=== PATIENT | female | born 1965 | race Caucasian/White ===

== ENCOUNTER → 2018-09-24 11:30 | Outpatient (CLI) | payer OTHER, SELFPAY ==
[2018-09-24 11:24] VITALS: BMI 22.4
[2018-09-30 10:36] LABS: HPV APTIMA, High Risk Negative (Negative)
--- OUTSIDE RECORDS SUMMARY | 2018-11-10 22:05 | XMS RPT_ITS ---
:1965 Author Organization OHIP Care Team Providers Name Role Phone ILEANA BRANDON ([facility]) Attending Unavailable TALAMPAS, RIGO D Referring Unavailable CARRILLO, JENNIFER B Attending Unavailable TALAMPAS, RIGO D Referring Unavailable OLDER, YVES ([facility]) Attending Unavailable CARRILLO, JENNIFER B Referring Unavailable CARRILLO, JENNIFER B Referring Unavailable FRANCISCO, BENNY T Admitting Unavailable FRANCISCO, BENNY T Attending Unavailable OLDER, YVES ([facility]) Referring Unavailable BRINATATUM KEITH ([facility]) Attending Unavailable CARRILLO, JENNIFER B Referring Unavailable [facility] Attending Unavailable Talampas, Rigo Referring Unavailable Jerry, [place]ena Attending Unavailable [facility] Referring Unavailable PROBLEMS PROBLEMS DATE TYPE CONDITION / CODE ATTENDING STATUS SOURCE 09/26/2018 Active Encounter for FRANCISCO, Active [facility] screening for EBNNY T [facility] malignant neoplasm Repository of colon / Z12.11(ICD-10) 09/24/2018 Unknown Z12.4 - Encounter [place] Edwards Active [place] for screening for Community malignant neoplasm Hospital of cervix / Repository Z12.4(ICD-10) 09/24/2018 Unknown Z01.419 - Encounter [place] Edwards Active [place] for gynecological [facility] examination [facility] (general) (routine) Repository without abnormal findings / Z01.419(ICD-10) 09/24/2018 Unknown C50.911 - Malignant [facility] [place] neoplasm of Community unspecified site of Hospital right female breast Repository / C50.911(ICD-10) 09/24/2018 Unknown Z17.0 - Estrogen JerryLa Nena pérez Active [place] receptor positive Community status [ER+] / Hospital Z17.0(ICD-10) Repository 09/24/2018 Active Malignant neoplasm NA Active [facility] of upper-outer [place] quadrant of right Repository female breast / C50.411(ICD-10) 09/24/2018 Active Estrogen receptor NA Active [facility] positive status [place] (ER+) / Repository Z17.0(ICD-10) 07/16/2018 Active Unknown / OLDER, YVES Active [facility] UNK(Unknown) ([facility]) [place] Repository PROCEDURES PROCEDURES No Procedure Records FoundRESULTS RESULTS PROGRESS Observed: 10/28/2018 Status: COMPLETED Source: [place] 9:58 AM [facility] [place] REPOSITORY HNO ID: [id number] Author: Tatum Ashford ([facility]) [place] Service: (none) Author Type: Nurse Practitioner Type: Progress Notes Filed: 10/28/2018 3:00 PM Note Text: HISTORY OF PRESENT ILLNESS: Per Dr. Carrillo's office visit notes 03/28/18: Ms. Irving 53-year-old white female who was found to have T1c N0 (i-) M0, grade 1, right breast cancer, stage IA, ER/WA positive, Her 2neu non-amplified. This was in the tail of the breast. She now returns after undergoing Oncotype DX shows score of 11. She has completed XRT and was started on Tamoxifen 03/2012. CURRENT STATUS: She presents today for 6 month follow-up visit. She continues taking tamoxifen 20 mg daily and has been on this since March,. Her recent mammogram on 09/24/18 was determined BI- RADS Category 2 benign after extra films were obtained. Her last bone density test was on 03/12/17 as reported as normal bone density. She continues taking her vitamin D supplements daily and jogs 2-3 miles 2-3 times per week. She denies any muscle cramping, vaginal bleeding or signs of extremity swelling. She has a rare hot flash. She had a repeat colonoscopy on 09/26/[address] Murphy with normal findings and recommendations to repeat in 10 years. Her last menstrual period was in 2013. ROS: CONSTITUTIONAL: No fever, chills, night sweats or excessive fatigue. EYES: No significant visual difficulties. No diplopia. No blurred vision HEENT: No sore mouth or throat. No sinus drainage. ENDOCRINE: Rare hot flashes/night sweats. Denies excessive thirst. HEMATOLOGY/LYMPHOLOGY: No easy bruising or bleeding, The patient denies any tender or palpable lymph nodes. RESPIRATORY: No dyspnea on exertion, chest pain or hemoptysis. CARDIOVASCULAR: Denies palpitations orthopnea. GENITOURINARY: She denies any dysuria or vaginal bleeding. GASTROINTESTINAL: Denies GI bleeding or change in bowel habits. Denies heartburn or abdominal pain. MUSCULOSKELETAL: No joint pain, swelling or redness. No decreased range of motion. SKIN: No chronic rashes, inflammation, ulcerations or skin changes. NEURO: No headaches. Denies extremity weakness or numbness. Normal gait. All other reviewed and negative other than HPI. ECOG PERFORMANCE STATUS: 0- Fully active, able to carry on all pre-disease performance w/o restriction. Social History Marital status: Spouse name: Price Years of education: 18 Number of children: 2 Occupational History Occupation Employer [employer] Social History Main Topics Smoking status: Never Smoker Smokeless tobacco: Never Used Alcohol use: No Drug use: No Sexual activity: Yes Partners with: Male control/protection: Vasectomy Other Topics Concern Special Diet No Exercise Yes Comment:Walk and run x3 per week. Social History Narrative Lives with spouse, significant other, family, or friends. 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, [employer] --- Updated July 15, 2017 [facility] FAMILY HISTORY Problem Relation Age of Onset - Hypertension Mother - Lipids Father - Osteoporosis Father - Stroke Father - Breast Cancer Other no family history breast ca - Cancer Other no family history ovarian cancer PAST MEDICAL HISTORY Diagnosis Date - Anemia, unspecified 05/2013 - Breast cancer (HCC) 12/10/2011 Right, ER/WA+, Her 2neu 0-1+ Not amplified - Mixed hyperlipidemia Hyperlipidemia - Shoulder pain 01/24/2010 PHYSICAL EXAM: BP 114/62 Pulse 72 Temp (Src) 97.9 (Oral) Resp 16 Ht 5' 4.961 (1.65m) Wt 136 lb (61.7kg) SpO2 95% LMP 06/22/2014 BMI 22.66 kg/(m2). CONSTITUTIONAL: Awake, alert, oriented. HEAD (Incl. face): Normocephalic; Atraumatic. EYES: Pupils are reactive. No scleral icterus. HEENT: No oral exudates. NECK: No thyromegaly. No JVD. HEMATOLOGY/LYMPHATIC: No petechiae or purpura. No tender or palpable lymph nodes in the cervical, supraclavicular, axillary or inguinal areas. RESPIRATORY: Lungs are clear to auscultation. CARDIOVASCULAR: Regular rate and rhythm. 2 + radial pulse. ABDOMEN: Non-tender, soft, positive bowel sounds. BACK/SPINE: No kyphosis or scoliosis. Non tender to palpation. MUSCULOSKELETAL: No tenderness or swelling, normal range of motion without obvious weakness. EXTREMITIES: No cyanosis, clubbing INTEGUMENTARY: No rashes or masses. NEURO: No sensory or motor deficits, normal cerebellar function, normal gait. PSYCHIATRIC: Pleasant affect. No signs of agitation. BREAST: Bilateral breast without masses, nipple d/c or skin discoloration. Evidence of right breast lumpectomy. LABS: Component Latest Ref Rng AND Units 03/27/2018 09/24/2018 WBC 3.70 - 11.00 k/uL 8.21 6.65 RBC 3.90 - 5.20 m/uL 4.59 4.45 Hemoglobin 11.5 - 15.5 g/dL 13.0 12.7 Hematocrit 36.0 - 46.0 % 39.9 39.7 MCV 80.0 - 100.0 fL 86.9 89.2 MCH 26.0 - 34.0 pG 28.3 28.5 MCHC 30.5 - 36.0 g/dL 32.6 32.0 RDW-CV 11.5 - 15.0 % 12.8 12.4 Platelet Count 150 - 400 k/uL 308 325 MPV 9.0 - 12.7 fL 10.0 11.2 Neut% % 69.1 63.1 Abs Neut (ANC) 1.45 - 7.50 k/uL 5.67 4.18 Lymph% % 23.6 28.9 Abs Lymph 1.00 - 4.00 k/uL 1.94 1.92 Routt% % 5.6 6.8 Abs Routt <0.87 k/uL 0.46 0.45 Eosin% % 1.5 0.6 Abs Eosin <0.46 k/uL 0.12 0.04 Baso% % 0.2 0.6 Abs Baso <0.11 k/uL <0.03 0.04 Nucleated Reds 0 /100 WBC 0.0 Absolute nRBC <0.01 k/uL <0.01 Diff Type Auto Diff Protein, Total 6.3 - 8.0 g/dL 7.8 7.4 Albumin 3.9 - 4.9 g/dL 4.8 4.6 Calcium 8.5 - 10.2 mg/dL 9.4 9.4 Bilirubin, Total 0.2 - 1.3 mg/dL <0.2 (L) 0.2 Alkaline Phosphatase 34 - 123 U/L 62 61 AST 13 - 35 U/L 32 29 Glucose 74 - 99 mg/dL 99 70 (L) BUN 7 - 21 mg/dL 15 15 Creatinine 0.58 - 0.96 mg/dL 0.66 0.70 Sodium 136 - 144 mmol/L 141 140 Potassium 3.7 - 5.1 mmol/L 4.2 4.2 Chloride 97 - 105 mmol/L 101 101 CO2 22 - 30 mmol/L 27 25 Anion Gap 9 - 18 mmol/L 13 14 ALT 7 - 38 U/L 24 17 eGFR- >60 >60 eGFR-All Other Races . >60 >60 RADIOLOGY: Mammogram 09/24/18 bilateral breasts IMPRESSION: No mammographic evidence of malignancy. Routine annual screening mammography is recommended. ? Amended BI-RADS: 2 Benign finding letter sent: Normal over 40 Bone density 03/12/2017 03/12/2017 12:04 PM - Interface, Results In Impression IMPRESSION: The patient's T- scores meet the World Health Organization classification for normal bone density. Follow-up exam in 2 to 4 years recommended WORLD HEALTH ORG. CLASSIFICATION OF BONE MASS CLASSIFICATION ?T-SCORE Normal ?Greater than or equal to -1 Low Bone Mass ?Between -1 and -2.5 (Osteopenia) Osteoporosis ?Less than or equal to -2.5 Manager [employer]: JENIFER ? Transcribe Date/Time: Mar 12 2017 11:55A Dictated by : JEFFREY DOBSON DO ASSESSMENT / PLAN: 1. Right Breast carcinoma. The pt was found to have low risk disease, T1c N0 M0 (i-), ER/WA positive and Her 2neu negative. She wants to continue on the Tamoxifen to complete the [address] Carrillo previously discussed options of 5 more years tamoxifen or switching to an AI. She will continue on the tamoxifen for now. I will refill this today. I did give her handouts on the 3 aromatase inhibitors from [employer]. Her most recent mammogram was 09/2018 and was BIRADS 2. I will plan to repeat in 09/2019. She will be due for a repeat bmd 02/2019. 2. Abn of Liver. Repeat CT in 03/2012 shows no abnormality. 3. Left Breast Biopsy. This was negative. 4. S/p endometrial biopsy. Her last menstrual period was in 2013. 5. General. She reports that she has maternal cousin that was dx with breast cancer. Her BRCA 1/2 testing and was negative. Tatum Gonsalves CNP CC: Dr. Rgio Boone CNOVSP Observed: 10/28/2018 Status: COMPLETED Source: [place] 9:30 AM [facility] REPOSITORY Visit (SP) Office ([place]) JOANN IRVING ([id number]) 1965 F Date Time Provider Department 10/28/18 9:30 AM TATUM GONSALVES ([facility]) [place] During your visit today, we recorded the following information about you: Temperature Pulse Respiration Blood pressure 97.9 degrees 72/minute 16/minute 114/62 Weight Height 61.7 kg 1.65 m Tatum Gonsalves APRN.CNP 10/28/2018 3:00 PM Signed HISTORY OF PRESENT ILLNESS: Per Dr. Carrillo's office visit notes 03/28/18: Ms. Irving 53-year-old white female who was found to have T1c N0 (i-) M0, grade 1, right breast cancer, stage IA, ER/WA positive, Her 2neu non-amplified. This was in the tail of the breast. She now returns after undergoing Oncotype DX shows score of 11. She has completed XRT and was started on Tamoxifen 03/2012. CURRENT STATUS: She presents today for 6 month follow-up visit. She continues taking tamoxifen 20 mg daily and has been on this since March,. Her recent mammogram on 09/24/18 was determined BI-RADS Category 2 benign after extra films were obtained. Her last bone density test was on 03/12/17 as reported as normal bone density. She continues taking her vitamin D supplements daily and jogs 2-3 miles 2-3 times per week. She denies any muscle cramping, vaginal bleeding or signs of extremity swelling. She has a rare hot flash. She had a repeat colonoscopy on 09/26/[address] Murphy with normal findings and recommendations to repeat in 10 years. Her last menstrual period was in 2013. ROS: CONSTITUTIONAL: No fever, chills, night sweats or excessive fatigue. EYES: No significant visual difficulties. No diplopia. No blurred vision HEENT: No sore mouth or throat. No sinus drainage. ENDOCRINE: Rare hot flashes/night sweats. Denies excessive thirst. HEMATOLOGY/LYMPHOLOGY: No easy bruising or bleeding, The patient denies any tender or palpable lymph nodes. RESPIRATORY: No dyspnea on exertion, chest pain or hemoptysis. CARDIOVASCULAR: Denies palpitations orthopnea. GENITOURINARY: She denies any dysuria or vaginal bleeding. GASTROINTESTINAL: Denies GI bleeding or change in bowel habits. Denies heartburn or abdominal pain. MUSCULOSKELETAL: No joint pain, swelling or redness. No decreased range of motion. SKIN: No chronic rashes, inflammation, ulcerations or skin changes. NEURO: No headaches. Denies extremity weakness or numbness. Normal gait. All other reviewed and negative other than HPI. ECOG PERFORMANCE STATUS: 0- Fully active, able to carry on all pre-disease performance w/o restriction. Social History Marital status: Spouse name: Price Years of education: 18 Number of children: 2 Occupational History Occupation Employer [employer] Social History Main Topics Smoking status: Never Smoker Smokeless tobacco: Never Used Alcohol use: No Drug use: No Sexual activity: Yes Partners with: Male control/protection: Vasectomy Other Topics Concern Special Diet No Exercise Yes Comment:Walk and run x3 per week. Social History Narrative Lives with spouse, significant other, family, or friends. 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, [employer] --- Updated July 15, 2017 [facility] at [facility] FAMILY HISTORY Problem Relation Age of Onset - Hypertension Mother - Lipids Father - Osteoporosis Father - Stroke Father - Breast Cancer Other no family history breast ca - Cancer Other no family history ovarian cancer PAST MEDICAL HISTORY Diagnosis Date - Anemia, unspecified 05/2013 - Breast cancer (HCC) 12/10/2011 Right, ER/WA+, Her 2neu 0-1+ Not amplified - Mixed hyperlipidemia Hyperlipidemia - Shoulder pain 01/24/2010 PHYSICAL EXAM: BP 114/62 Pulse 72 Temp (Src) 97.9 (Oral) Resp 16 Ht 5' 4.961 (1.65m) Wt 136 lb (61.7kg) SpO2 95% LMP 06/22/2014 BMI 22.66 kg/(m2). CONSTITUTIONAL: Awake, alert, oriented. HEAD (Incl. face): Normocephalic; Atraumatic. EYES: Pupils are reactive. No scleral icterus. HEENT: No oral exudates. NECK: No thyromegaly. No JVD. HEMATOLOGY/LYMPHATIC: No petechiae or purpura. No tender or palpable lymph nodes in the cervical, supraclavicular, axillary or inguinal areas. RESPIRATORY: Lungs are clear to auscultation. CARDIOVASCULAR: Regular rate and rhythm. 2 + radial pulse. ABDOMEN: Non-tender, soft, positive bowel sounds. BACK/SPINE: No kyphosis or scoliosis. Non tender to palpation. MUSCULOSKELETAL: No tenderness or swelling, normal range of motion without obvious weakness. EXTREMITIES: No cyanosis, clubbing INTEGUMENTARY: No rashes or masses. NEURO: No sensory or motor deficits, normal cerebellar function, normal gait. PSYCHIATRIC: Pleasant affect. No signs of agitation. BREAST: Bilateral breast without masses, nipple d/c or skin discoloration. Evidence of right breast lumpectomy. LABS: Component Latest Ref Rng AND Units 03/27/2018 09/24/2018 WBC 3.70 - 11.00 k/uL 8.21 6.65 RBC 3.90 - 5.20 m/uL 4.59 4.45 Hemoglobin 11.5 - 15.5 g/dL 13.0 12.7 Hematocrit 36.0 - 46.0 % 39.9 39.7 MCV 80.0 - 100.0 fL 86.9 89.2 MCH 26.0 - 34.0 pG 28.3 28.5 MCHC 30.5 - 36.0 g/dL 32.6 32.0 RDW-CV 11.5 - 15.0 % 12.8 12.4 Platelet Count 150 - 400 k/uL 308 325 MPV 9.0 - 12.7 fL 10.0 11.2 Neut% % 69.1 63.1 Abs Neut (ANC) 1.45 - 7.50 k/uL 5.67 4.18 Lymph% % 23.6 28.9 Abs Lymph 1.00 - 4.00 k/uL 1.94 1.92 Routt% % 5.6 6.8 Abs Routt <0.87 k/uL 0.46 0.45 Eosin% % 1.5 0.6 Abs Eosin <0.46 k/uL 0.12 0.04 Baso% % 0.2 0.6 Abs Baso <0.11 k/uL <0.03 0.04 Nucleated Reds 0 /100 WBC 0.0 Absolute nRBC <0.01 k/uL <0.01 Diff Type Auto Diff Protein, Total 6.3 - 8.0 g/dL 7.8 7.4 Albumin 3.9 - 4.9 g/dL 4.8 4.6 Calcium 8.5 - 10.2 mg/dL 9.4 9.4 Bilirubin, Total 0.2 - 1.3 mg/dL <0.2 (L) 0.2 Alkaline Phosphatase 34 - 123 U/L 62 61 AST 13 - 35 U/L 32 29 Glucose 74 - 99 mg/dL 99 70 (L) BUN 7 - 21 mg/dL 15 15 Creatinine 0.58 - 0.96 mg/dL 0.66 0.70 Sodium 136 - 144 mmol/L 141 140 Potassium 3.7 - 5.1 mmol/L 4.2 4.2 Chloride 97 - 105 mmol/L 101 101 CO2 22 - 30 mmol/L 27 25 Anion Gap 9 - 18 mmol/L 13 14 ALT 7 - 38 U/L 24 17 eGFR- >60 >60 eGFR-All Other Races . >60 >60 RADIOLOGY: Mammogram 09/24/18 bilateral breasts IMPRESSION: No mammographic evidence of malignancy. Routine annual screening mammography is recommended. ? Amended BI-RADS: 2 Benign finding letter sent: Normal over 40 Bone density 03/12/2017 03/12/2017 12:04 PM - Interface, Results In Impression IMPRESSION: The patient's T- scores meet the World Health Organization classification for normal bone density. Follow-up exam in 2 to 4 years recommended WORLD HEALTH ORG. CLASSIFICATION OF BONE MASS CLASSIFICATION ?T-SCORE Normal ?Greater than or equal to -1 Low Bone Mass ?Between -1 and -2.5 (Osteopenia) Osteoporosis ?Less than or equal to -2.5 Manager [employer]: JENIFER ? Transcribe Date/Time: Mar 12 2017 11:55A Dictated by : JEFFREY DOBSON DO ASSESSMENT / PLAN: 1. Right Breast carcinoma. The pt was found to have low risk disease, T1c N0 M0 (i-), ER/WA positive and Her 2neu negative. She wants to continue on the Tamoxifen to complete the [address] Carrillo previously discussed options of 5 more years tamoxifen or switching to an AI. She will continue on the tamoxifen for now. I will refill this today. I did give her handouts on the 3 aromatase inhibitors from [employer]. Her most recent mammogram was 09/2018 and was BIRADS 2. I will plan to repeat in 09/2019. She will be due for a repeat bmd 02/2019. 2. Abn of Liver. Repeat CT in 03/2012 shows no abnormality. 3. Left Breast Biopsy. This was negative. 4. S/p endometrial biopsy. Her last menstrual period was in 2013. 5. General. She reports that she has maternal cousin that was dx with breast cancer. Her BRCA 1/2 testing and was negative. Tatum Gonsalves, IVANA CC: Dr. Rigo Boone Referring Provider: JENNIFER CARRILLO [[id number]] Allergies As of Date: 10/28/2018 (No Known Allergies) Date Reviewed: 10/28/2018 Reviewed by: Lorraine Guevara MA - Fully Assessed Reason for Visit: F/U 6 Month [444] Primary Visit Diagnosis:Malignant neoplasm of upper-outer quadrant of right breast in female, estrogen receptor positive (HCC) [C50.411, Z17.0] Other Visit Diagnosis:Encounter for therapeutic drug level monitoring [Z51.81] Order(s):tamoxifen (NOLVADEX) 20 mg tabletTake 1 tablet by mouth once daily.Disp: 90 tabletRfl: 1 CBC + DIFF (FOR REMOTE [facility] USE) [SQRCBCDF] Order #: [id number] FUTURE COMP METABOLIC PANEL [SQCMP] Order #: [id number] FUTURE Follow-up and Disposition History Recorded Prescriptions as of 10/28/2018 Sig: TAMOXIFEN 20 MG TABLET Take 1 tablet by mouth once d* FLUTICASONE 50 MCG/ACTUATION * Use 2 Sprays in each nostril * CHOLECALCIFEROL (VITAMIN D3) * Take 2,000 Units by mouth onc* Problem List As Of Date 10/28/2018 Noted Resolved Hyperlipemia [E78.5] INVALID FOR* More... Breast cancer [C50.919] INVALID FOR* More... History of breast cancer [Z85.3] INVALID FOR* Calcification of left breast [R92.1] INVALID FOR* Malignant neoplasm of upper-outer quadrant of r*INVALID FOR* Encounter for therapeutic drug level monitoring*INVALID FOR* Encounter Status:Closed by TATUM GONSALVES CNP on 10/28/18 NURSING PROG Observed: 09/26/2018 Status: COMPLETED Source: [place] 12:05 PM [facility] REPOSITORY HNO ID: [id number] Author: Nabila PadillaRn) LINA Dickens Service: (none) Author Type: Registered Nurse Type: Nursing Progress Note Filed: 09/26/2018 12:09 PM Note Text: Patient did not experience a fall prior to discharge. Patient did not experience a burn prior to discharge. Nabila Dickens RN NURSING PROG Observed: 09/26/2018 Status: COMPLETED Source: [place] 11:50 AM [facility] REPOSITORY HNO ID: [id number] Author: Bon PadillaRn) Fletcher, RN Service: Nursing Author Type: Registered Nurse Type: Nursing Progress Note Filed: 09/26/2018 11:50 AM Note Text: S bar to Evon Arguello RN NURSING PROG Observed: 09/26/2018 Status: COMPLETED Source: [place] 11:41 AM [facility] REPOSITORY HNO ID: [id number] Author: Bon PadillaRn) Fletcher, RN Service: Nursing Author Type: Registered Nurse Type: Nursing Progress Note Filed: 09/26/2018 11:42 AM Note Text: Dr Murphy to visit, tolerating snack, no complaints, all safety maintained. PT ED Observed: 09/26/2018 Status: COMPLETED Source: [place] 11:40 AM [facility] REPOSITORY HNO ID: [id number] Author: Bon PadillaRnAdrian Bynum RN Service: Nursing Author Type: Registered Nurse Type: Patient Education Filed: 09/26/2018 11:43 AM Note Text: POST OP LEARNING RESPONSE INSTRUCTION PROVIDED TO: Patient and family member METHOD OF INSTRUCTION: Individual instruction Written instruction - handouts Verbal instruction PATIENT / FAMILY RESPONSE: Information received as demonstrated by interest and questions FOLLOW-UP PLAN: Patient instructed to call with any further issues SUPPLEMENTAL MATERIAL: None REFERRAL (RECOMMENDATION): None Electronically Signed By: Bon Bynum RN In Department: AMBULATORY SURGERY NURSING PROG Observed: 09/26/2018 Status: COMPLETED Source: [place] 11:24 AM [facility] REPOSITORY HNO ID: [id number] Author: Bon PadillaRnAdrian Bynum RN Service: Nursing Author Type: Registered Nurse Type: Nursing Progress Note Filed: 09/26/2018 11:32 AM Note Text: Dr Murphy to speak to patient, will come back to speak to spouse. Resting quietly, no complaints. NURSING PROG Observed: 09/26/2018 Status: COMPLETED Source: [place] 11:20 AM [facility] REPOSITORY HNO ID: [id number] Author: Bon Bynum RN Service: Nursing Author Type: Registered Nurse Type: Nursing Progress Note Filed: 09/26/2018 11:32 AM Note Text: Pt into Endo recovery room in satisfactory condition. Resting on left side. Pt. sleepy but arousable. Abdomen soft, no complaints, all safety maintained. Will continue to monitor. NURSING PROG Observed: 09/26/2018 Status: COMPLETED Source: [place] 11:14 AM [facility] REPOSITORY HNO ID: [id number] Author: Sailaja PadillaRnAdrian De Jesus RN Service: (none) Author Type: Registered Nurse Type: Nursing Progress Note Filed: 09/26/2018 11:14 AM Note Text: Patient did not experience a fall within the Intraoperative area. Patient did not experience a burn within the Intraoperative area. Sailaja De Jesus RN NURSING PROG Observed: 09/26/2018 Status: COMPLETED Source: [place] 10:37 AM [facility] REPOSITORY HNO ID: [id number] Author: Bon (Rn) LINA Bynum Service: Nursing Author Type: Registered Nurse Type: Nursing Progress Note Filed: 09/26/2018 11:34 AM Note Text: [facility] PRE-OP NURSING HAND OFF NOTE SBAR Hand off given to Sailaja De Jesus RN. Hand off was communicated verbally and at the patient's bedside and all questions were answered. FALLS/BRADLEY Patient did not experience a fall within the Preoperative area. Patient did not experience a burn within the Preoperative area. Bon Bynum RN HISTORY PHYSICAL Observed: 09/26/2018 Status: COMPLETED Source: [place] 10:30 AM [facility] REPOSITORY HNO ID: [id number] Author: Benny Murphy Service: General Surgery Author Type: Physician Type: HANDP Filed: 09/26/2018 10:31 AM Note Text: PROCEDURAL SEDATION HISTORY AND PHYSICAL EXAM SERVICE DATE: 09/26/2018 SERVICE TIME: 10:30 AM Subjective HPI: This is a 53 year old female who presents for screening colonoscopy PAST ANESTHESIA HISTORY: No history of adverse event PAST MEDICAL HISTORY Diagnosis Date - Anemia, unspecified 05/2013 - Breast cancer (HCC) 12/10/2011 Right, ER/WA+, Her 2neu 0-1+ Not amplified - Mixed hyperlipidemia Hyperlipidemia - Shoulder pain 01/24/2010 PAST SURGICAL HISTORY Procedure Laterality Date - BIOPSY BREAST 2011 - COLONOSCOP W/ OR W/O [facility] SPE[facility] 09/30/2013 Colonoscopy - PAST SURGICAL HISTORY OF 12/04/2011 Right breast Lumpectomy, excision of lump in right axillary region Prior to Admission medications as of 09/26/18 0947 Medication Sig Last Dose Taking Cholecalciferol, Vitamin D3, (VITAMIN D) 1,000 unit cap Take 2,000 Units by mouth once daily. Unknown at Unknown time Yes fluticasone (FLONASE) 50 mcg/actuation nasal spray Use 2 Sprays in each nostril once daily as needed. Rinse mouth after use. Unknown at Unknown time Yes tamoxifen (NOLVADEX) 20 mg tablet Take 1 tablet by mouth once daily. 09/25/2018 at Unknown time Yes ALLERGIES No Known Allergies Objective PHYSICAL EXAM: The remainder of the physical exam is noncontributory. AIRWAY: Airway Visualization of Uvula: Yes Mouth opening greater than 2 fingerbreadths: Yes Neck Full Range of Motion: Yes LUNGS: Lungs clear to auscultation, Good diaphragmatic excursion CARDIAC: Normal S1 and S2; no rubs, murmurs, or gallops Assessment/Plan ASA Class: ASA Class:: Patient with mild systemic disease Active Problems: * No active hospital problems. * Resolved Problems: * No resolved hospital problems. * Provisional Diagnosis/Treatment Plan: screening colonoscopy SEDATION GOAL: Moderate SIGNATURE: Benny Murphy MD PATIENT NAME: Joann Irving DATE: September 26, 2018 TIME: 10:30 AM PAGER: PT ED Observed: 09/26/2018 Status: COMPLETED Source: [place] 10:05 AM [facility] REPOSITORY HNO ID: [id number] Author: Bon (Rn) LINA Bynum Service: Nursing Author Type: Registered Nurse Type: Patient Education Filed: 09/26/2018 10:06 AM Note Text: PRE OP LEARNING ASSESSMENT PROCEDURE/SURGERY: GI PROCEDURES: Colonoscopy READINESS TO LEARN COGNITIVE ABILITY: Alert and oriented MOTIVATION TO LEARN: Eager Interested FAMILY SUPPORT: High - Very involved in pt care PATIENT LEARNS BEST BY: Multiple Methods FACTORS AFFECTING LEARNING: None PHYSICAL LIMITATIONS AFFECTING LEARNING: None Electronically Signed By: Bon Bynum RN In Department: AMBULATORY SURGERY [facility] Observed: 09/24/2018 Status: COMPLETED Source: [place] 2:10 PM [facility] REPOSITORY HNO ID: [id number] Author: Mammography Coordinator Service: (none) Author Type: Physician Type: Letter Filed: 09/25/2018 11:32 PM Note Text: September 24, 2018 PID: [id number] Joann Irving [address] [place] [address] Dear Ms. Irving, We are pleased to inform you that the results of your recent breast imaging exam on 09/24/2018 are normal. Your mammogram demonstrates that you have dense breast tissue, which could hide abnormalities. Dense breast tissue, in and of itself, is a relatively common condition. Therefore, this information is not provided to cause undue concern; rather, it is to raise your awareness and promote discussion with your health care provider regarding the presence of dense breast tissue in addition to other risk factors. Early detection of cancer is very important. We also understand recommendations regarding breast cancer screening are controversial. Please discuss with your primary care provider which strategy is best for you and whether a mammogram is right for you. Your imaging studies and report will be kept on file at [facility] as part of your permanent medical record and are available for your continuing care. Thank you for allowing us to help in meeting your health care needs. Sincerely, Dr. Grimes Interpreting Radiologist [facility] (Normal over 40) REMOTE CBCDIF Collected: 09/24/2018 Status: F Source: [place] (FOR [facility] USE ONLY) 12:06 PM [facility] REPOSITORY TYPE CODE TESTS RESULT OUT OF REFERENCE UNITS RANGE LAB WBC 3.70-11.00 k/uL WBC 6.65 LAB RBC 3.90-5.20 m/uL RBC 4.45 LAB HGB 11.5-15.5 g/dL Hemoglobin 12.7 LAB HCT 36.0-46.0 % Hematocrit 39.7 LAB MCV 80.0-100.0 fL MCV 89.2 LAB MCH 26.0-34.0 pG MCH 28.5 LAB MCHC 30.5-36.0 g/dL MCHC 32.0 LAB RDWCV 11.5-15.0 % RDW-CV 12.4 LAB PLTCT 150-400 k/uL Platelet Count 325 LAB MPV 9.0-12.7 fL MPV 11.2 LAB ANEUT % Neut% 63.1 LAB AANEUT 1.45-7.50 k/uL Abs Neut 4.18 LAB ALYMP % Lymph% 28.9 LAB AALYMP 1.00-4.00 k/uL Abs Lymph 1.92 LAB AMONO % Routt% 6.8 LAB AAMONO <0.87 k/uL Abs Routt 0.45 LAB AEOS % Eosin% 0.6 LAB AAEOS <0.46 k/uL Abs Eosin 0.04 LAB ABASO % Baso% 0.6 LAB AABASO <0.11 k/uL Abs Baso 0.04 LAB AUNRBC 0 /100 WBC NRBCs 0.0 LAB ABNRBC <0.01 k/uL Absolute nRBC <0.01 LAB DTYP DTYPE Auto Diff Performed By: #### RCBCDF #### [facility] [address] [place], [place] [address] COMP METABOLIC PANEL Collected: 09/24/2018 Status: F Source: [place] 12:06 PM [facility] REPOSITORY TYPE CODE TESTS RESULT OUT OF REFERENCE UNITS RANGE LAB TP 6.3-8.0 g/dL Protein, Total 7.4 LAB ALB 3.9-4.9 g/dL Albumin 4.6 LAB CA 8.5-10.2 mg/dL Calcium, Total 9.4 LAB TBIL 0.2-1.3 mg/dL Bilirubin, Total 0.2 LAB ALKP 34-123 U/L Alkaline Phosphatase 61 LAB AST 13-35 U/L AST 29 LAB GLU 74-99 mg/dL Low Glucose 70 Result Comment: The [place] Diabetes Association (ADA) provides guidance for cutoff values for fasting glucose and random glucose. The ADA defines fasting as no caloric intake for at least 8 hours. Fas ting plasma glucose results between 100 to 125 mg/dL indicate increased risk for diabetes (prediabetes). Fasting plasma glucose results greater than or equal to 126 mg/dL meet the criteria for diagnosis of diabetes. In the absence of unequivocal hyperglycemia, results should be confirmed by repeat testing. In a patient with classic symptoms of hyperglycemia or hyperglycemic crisis, random plasma glucose results greater than or equal to 200 mg/dL meet the criteria for diagnosis of diabetes. Reference: Standards of Medical Care in Diabetes 2016, Indian Diabetes Association. Diabetes Care. 2016.39(Suppl 1). LAB BUN 7-21 mg/dL BUN 15 LAB CRET 0.58-0.96 mg/dL Creatinine 0.70 LAB NA 136-144 mmol/L Sodium 140 LAB K 3.7-5.1 mmol/L Potassium 4.2 LAB CL 97-105 mmol/L Chloride 101 LAB CO2 22-30 mmol/L CO2 25 LAB AGAP 9-18 mmol/L Anion Gap 14 LAB ALT 7-38 U/L ALT 17 LAB GFRAA eGFR- Amer. >60 LAB GFRNAA . eGFR-All Other Races >60 Result Comment: eGFR (Estimated GFR) Units of measure: mL/min/1.73 meters squared eGFR is derived from the reexpressed MDRD Study equation using the following parameters: serum creatinine, age, gender and race. The creatinine assay has been calibrated to be traceable to IDMS. An eGFR <60 mL/min/1.73m2 for >3 months is consistent with chronic kidney disease. Refer to KDOQI guidelines for clinical interpretation. In patients with unstable renal function, e.g. those with acute kidney injury, the eGFR may not accurately reflect actual GFR. Performed By: #### CMP #### [facility] [address] [place], [place] [address] FEED AND FARM MANAGEMENT ADVISER OFFICE VISIT Observed: 09/24/2018 Status: F Source: [place] REPORT 12:01 PM [facility] REPOSITORY [facility] 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: No Is patient in pain?: No Allergies No Known Allergies Allergy (Unverified 09/24/18 11:24) Medications cholecalciferol (vitamin D3) 2,000 unit capsule 2,000 unit PO DAILY 09/24/18 [History Confirmed 09/24/18] tamoxifen 10 mg tablet 10 mg PO BID 09/24/18 [History Confirmed 09/24/18] Is last menstrual period known: No Post menopausal: Yes Patient : No : No PFSH Medical History History of breast cancer (Acute) Surgical History H/O lumpectomy (Acute) Family History Father Heart disease Social History Smoking Status: Never smoker alcohol intake: never substance use type: does not use caffeine: Yes what type of physical activity do you participate in: walking seatbelt use: always do you feel safe at home: Yes 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 DateName GA/Weeks Outcome Route Bth WeighInfant GeLabor LgtAnesthesiDel LocatProvider FOB t n h a n HPI Encounter for routine gynecological examination: Details: JOANN IRVING is a 53 year old who presents for annual exam. Last PAP: unsure History of abnormal PAP: no Last mammogram: today/pending History of abnormal mammogram: right breast breast cancer 2011 Colon cancer screening: scheduled 09/26/18 Female Reproductive History Questions: Metorrhagia: No, Sexually active: Yes, Dyspareunia: No, PCB: No Menopausal Treatment: No HRT ROS Const Constitutional: Denies fatigue, weight gain or weight loss Cardio Card: Denies chest pain Resp Resp: Denies cough or shortness of breath with activity GI GI: Denies abdominal pain, constipation, change in stools, vomiting or bloating : Reports as per HPI; denies urinary frequency, pelvic pain, urinary urgency, vaginal discharge, vaginal itching, urinary incontinence or difficulty urinating Assessment AND Plan 1. Encounter for gynecological examination without abnormal finding Z01.419 2. Malignant neoplasm of right breast in female, estrogen receptor positive, unspecified site of breast C50.911; Z17.0 2011 lumpectomy, radiation and tamoxifen Plan Completed breast and pelvic exam Reviewed diet and exercise Pap thin prep pap with HPV Mammogram recent, follows with oncology Colonoscopy up to date RTO 1 year, prn with problems La Nena Edwards CNP Coding Level of Care Code Off vis,est,prev 40-64yrs Diagnoses Encounter for gynecological examination without abnormal finding Z01.419 Gynecological examination findings: abnormal findings ABSENT Malignant neoplasm of right breast in female, estrogen receptor positive, unspecified site of breast C50.911; Z17.0 Breast location: unspecified site of breast Estrogen receptor status: positive Patient sex: female 09/24/18 1201 <Electronically signed by La Nena KAPLAN> Date La Nena DONALDC Cosigner Signature: Date (if applicable) CC: PAP IG HPV APTIMA Collected: 09/24/2018 Status: F Source: [place] 16/18,45 11:30 AM [facility] REPOSITORY Order Comment: CYTOLOGY INFORMATION: - CLINICAL INFORMATION: ANNUAL - DATE LMP/MENOPAUSE: N/A - COLLECTION VIAL: Thin Prep Vial - 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 SOURCE: CERVICAL - COLLECTION TECHNIQUE: BRUSH/SPATULA Specimen Comment: [id number] Specimen Comment: Source.............Cervix Specimen Comment: No. of containers..01 ThinPrep Vial TYPE CODE TESTS RESULT OUT OF RANGE REFERENCE UNITS LAB L7400.0800 . Normal DIAGN Comment Result Comment: NEGATIVE FOR INTRAEPITHELIAL LESION AND MALIGNANCY. LAB L7400.0900 . Normal ADEQ Comment Result Comment: Satisfactory for evaluation. Endocervical and/or squamous metaplastic cells (endocervical component) are present. LAB L7400.1400 . Normal PERFORM Comment Result Comment: Tiffanie Fowler, Tree Shear Operator (ASCP) LAB L7400.2575 . Normal TEST METHOD Comment Result Comment: This liquid based ThinPrep(R) pap test was screened with the use of an image guided system. LAB L7400.2600 . Normal . COMM LAB L7400.2700 . Normal PAPSMR Comment Result Comment: The Pap smear is a screening test designed to aid in the detection of premalignant and malignant conditions of the uterine cervix. It is not a diagnostic procedure and should not be used as the sole means of detecting cervical cancer. Both false-positive and false-negative reports do occur. LAB L7400.2760 Negative Normal HPV APTIMA, Negative HR Result Comment: This test detects fourteen high-risk HPV types (16/18/31/33/35/39/45/ 51/52/56/58/59/66/68) without differentiation. Performed at: [facility], [place] [id number] Visual Display Associate: Faviola Rosario MD, Phone: [phone] Performed at: =[facility], [place] [id number] Visual Display Associate: Faviola Rosario MD, Phone: [phone] Performed By: #### L7400.0280 #### [facility] (refer to report for specific site) refer to report for address and phone number PATTIE SCREENING Observed: 09/24/2018 Status: C Source: [place] 10:06 AM [facility] MAIN CAMPUS REPOSITORY * * *Final Report* * * * * * SEE BOTTOM OF REPORT FOR ADDENDED TEXT * * * DATE OF EXAM: Sep 24 2018 10:06AM SIMIN 0581 - [facility] SCREENING / PROCEDURE REASON: multiple diagnoses * * * * Physician Interpretation * * * * RESULT: THIS REPORT HAS BEEN AMENDED. #[id number] - [facility] SCREENING BILATERAL DIGITAL SCREENING MAMMOGRAM WITH CAD: 09/24/2018 HISTORY: Multiple Diagnoses /Screening Mammogram - patient reports NO symptoms /priors available for comparison. RESULT: TECHNIQUE: The study was acquired using full field digital technology and interpreted from soft copy. Current study was also evaluated with a Computer Aided Detection (CAD). Comparison is made to exams dated: 09/20/2017 mammogram - [facility], 09/17/2016 mammogram - [facility], and 09/14/2015 mammogram - [facility]. The tissue of both breasts is heterogeneously dense. This may lower the sensitivity of mammography. The right breast has post-operative findings. There is a biopsy clip in the left breast in the lower outer quadrant. There are a grouped amorphous calcifications in the left breast at 6 o'clock posterior depth. This grouping of calcifications measures approximately 1.5 cm in size. No other significant masses, calcifications, or other findings are seen in either breast. IMPRESSION: SUSPICIOUS FINDING - BIOPSY SHOULD BE CONSIDERED The grouped amorphous calcifications in the left breast are suspicious of malignancy. A stereotactic biopsy is recommended. SUMMARY: Findings and recommendations were discussed with the patient. Informed consent for the biopsy procedure was obtained (electronic). The patient was instructed to schedule the biopsy prior to leaving the department today. Kole Grimes M.D., lp/isa:09/24/2018 14:05:25 Pediatric Urologist(s): RT Rudi(R)(M), [facility] Mammogram BI-RADS: 4 Suspicious finding - Biopsy should be considered Multiple national specialty organizations have released breast cancer screening guidelines for women at average risk for developing breast cancer - guidelines that are based on both evidence and opinion, yet differ on when to start and how often to screen for breast cancer. With representation from Breast Imaging, Internal Medicine, Women's Health, Family Medicine, and Medical/Surgical Oncology, the [facility] has carefully reviewed the data and reached the following consensus: 1) All women should engage in shared decision-making with their providers to decide when to start and how often to screen; 2) All women should have the opportunity to start screening mammography at age 40; 3) For women ages 45-55, we recommend annual screening mammograms; 4) For women ages 55 and over, we support both the transition from an annual to a biennial interval if this aligns more with patient's values and preferences, or continuation with annual screening; 5) All women should discuss with their providers when to stop screening mammograms. AMENDMENT: 09/24/2018 Kole Grimes M.D. Please disregard the prior report. A portion of the report was entered in error. The report should read as follows: FINDINGS: The breast tissue is heterogeneously dense which may obscure small masses. Post operative changes are again noted in the upper right breast. No suspicious mass, suspicious calcification or architectural distortion is identified in either breast. There has been no suspicious interval change. IMPRESSION: No mammographic evidence of malignancy. Routine annual screening mammography is recommended. Amended BI-RADS: 2 Benign finding letter sent: Normal over 40 Manager Oracle: Isa Transcribe Date/Time: Sep 24 2018 10:07A Dictated by: KOLE GRIMES MD This examination was interpreted and the report reviewed and electronically signed by: KOLE GRIMES MD on Sep 24 2018 2:05PM EST This document has been addended by: KOLE GRIMES MD on Sep 24 2018 2:10PM EST [id number] PROGRESS Observed: 09/24/2018 Status: COMPLETED Source: [place] 9:52 AM [facility] MAIN CAMPUS REPOSITORY HNO ID: [id number] Author: Jagruti Sena Rt Service: (none) Author Type: (none) Type: Progress Notes Filed: 09/24/2018 10:08 AM Note Text: Radiology Service Progress Note PATIENT NAME: Joann Irving DATE OF SERVICE: September 24, 2018 TIME: 9:52 AM PATIENT IDENTITY VERIFICATION COMPLETED USING TWO (2) METHODS: Patient confirmed name verbally and Date of . PATIENT GENDER DATA: Female. status: : No status: NO. PATIENT RELEVANT IMPLANT DATA REVIEWED: Not Applicable RADIOLOGY DEPARTMENT: Women[facility] mammogram PERIPHERAL IV DATA: Not applicable SIGNED BY: Jagruti Sena Rt September 24, 2018 9:52 AM PROGRESS Observed: 08/08/2018 Status: COMPLETED Source: [place] 9:35 AM [facility] REPOSITORY HNO ID: [id number] Author: Colette Mullins Psr Service: (none) Author Type: (none) Type: Progress Notes Filed: 08/08/2018 9:38 AM Note Text: Scheduled patient for colonoscopy with Dr. Murphy on 09/26/18. Mailing instructions. Colette Mullins Psr HOSP Observed: 08/08/2018 Status: COMPLETED Source: [place] 12:00 AM [facility] REPOSITORY Patient:Joann Irving MRN: <[id number]> Height:5' 4.961(1.65 m) Weight:No patient weight recorded within the last 30 days. Outpatient Medications as of 09/26/18: Cholecalciferol, Vitamin D3, (VITAMIN D) 1,000 unit cap fluticasone (FLONASE) 50 mcg/actuation nasal spray tamoxifen (NOLVADEX) 20 mg tablet Admission/Clinic Administered Medications as of 09/26/18: lactated ringers infusion Problem List: Hyperlipemia [E78.5] Breast cancer (HCC) [C50.919] History of breast cancer [Z85.3] Calcification of left breast [R92.1] Malignant neoplasm of upper-outer quadrant of right female breast (HCC) [C50.411] Allergies: No Known Allergies Date Verified:09/26/18 Lab Values Lab Value Units Date High Low POTA* 4.2 mmol/L 09/24/2018 5.1 3.7 NINA* 39.7 % 09/24/2018 46.0 36.0 Progress Notes (RADIO MAMMO [facility] OB): Jagruti Sena Rt 09/24/2018 10:08 AM Signed Radiology Service Progress Note PATIENT NAME: Joann Irving DATE OF SERVICE: September 24, 2018 TIME: 9:52 AM PATIENT IDENTITY VERIFICATION COMPLETED USING TWO (2) METHODS: Patient confirmed name verbally and Date of . PATIENT GENDER DATA: Female. status: : No status: NO. PATIENT RELEVANT IMPLANT DATA REVIEWED: Not Applicable RADIOLOGY DEPARTMENT: Women's [facility] mammogram PERIPHERAL IV DATA: Not applicable SIGNED BY: Jagruti Loving September 24, 2018 9:52 AM PROGRESS Observed: 07/24/2018 Status: COMPLETED Source: [place] 12:35 PM [facility] [place] REPOSITORY HNO ID: [id number] Author: Vivien Fenton Service: (none) Author Type: (none) Type: Progress Notes Filed: 07/24/2018 12:35 PM Note Text: 3rd failed attempt to contact patient, left voice message and mailing colonoscopy letter Vivien Fenton PROGRESS Observed: 2018 Status: COMPLETED Source: [place] 12:31 PM [facility] [place] REPOSITORY HNO ID: [id number] Author: Vivien Fenton Service: (none) Author Type: (none) Type: Progress Notes Filed: 2018 12:32 PM Note Text: 2nd failed attempt to contact patient, left voice message Vivien Fenton PROGRESS Observed: 07/16/2018 Status: COMPLETED Source: [place] 12:55 PM [facility] [place] REPOSITORY HNO ID: [id number] Author: Colette Mullins Psr Service: (none) Author Type: (none) Type: Progress Notes Filed: 07/16/2018 1:45 PM Note Text: 1st failed attempt to contact patient. Left voice message. Colette Mullins Psr PROGRESS Observed: 07/16/2018 Status: COMPLETED Source: [place] 11:24 AM [facility] [place] REPOSITORY HNO ID: [id number] Author: Yves High Service: (none) Author Type: Nurse Practitioner Type: Progress Notes Filed: 07/16/2018 1:45 PM Note Text: [facility] OPEN ACCESS QUESTIONNAIRE 1. Are you or could you be ? No 2. Are you currently having any stomach/gastrointestinal issues at this time such as constipation, diarrhea, abdominal pain, rectal bleeding etc? No 3. Do you have an implanted device such as a defibrillator, pacemaker, Cardiac Stent or deep brain stimulation device? No 4. Do you have any new or past cardiac (heart) or pulmonary (lung) issues? No 5. Is the patient's BMI 40 or greater? No:Body mass index is 22.36 kg/m?.. Last Wt 07/16/18 : 60.9 kg (134 lb 3.2 oz) Last Ht 07/16/18 : 165 cm (5' 4.96) 6. Have you had difficulty with prior sedations or complications with other procedures? No 7. Have you had difficulty with anesthesia previously re: ? Difficult intubation? No ? Other difficulty or allergic reaction to anesthesia other than post op N/V? No 8. Do you currently use oxygen or a breathing machine at night? No 9. Do you take any narcotics, depression or anti-Anxiety medications or 3 or more prescription drugs on a daily basis? No 10. Do you use any illegal or recreational drugs? No 11. Have you been hospitalized in the past 6 weeks? No 12. Are you on dialysis or have Chronic Kidney Disease? No 13. Have you been diagnosed with chronic liver disease such as hepatitis or cirrhosis? No 14. Do you have a seizure disorder? No 15. Do you have difficulty swallowing? No 16. Do you have ulcerative colitis or Crohn's disease? No 17. Do you take any Blood thinners, including Aspirin or fish oil? No 18. Do you have any blood disorders (re:hemophiliac)? No 19. Are you Diabetic? No 20. Any other important health information we should be made aware of prior to your colonoscopy? No 21. Any alcohol use: No. To be completed by LIP: Patient appropriate for Open Access Colonoscopy: Yes: appropriate for Open Access Procedure Checklist: Prior to closing the encounter: ? Complete questionnaire: Yes ? Confirm Prep order has been Ordered/Pended: Yes. ? Patient's procedure could be delayed if not given the script for the prep. Please ensure the prep is escripted to pharmacy or printed. Instructions for the prep will print upon filing or pending this smartset. ? Please send all open access questionnaires to [facility] Sched Pool #[id number] PROGRESS Observed: 07/16/2018 Status: COMPLETED Source: [place] 11:10 AM [facility] REPOSITORY HNO ID: [id number] Author: Yves (Ivana) Older Service: (none) Author Type: Nurse Practitioner Type: Progress Notes Filed: 07/16/2018 1:45 PM Note Text: CC: Patient presents with: Physical Imm/Inj: Flu Vaccine HPI Joann Irving is a 52 year old female who presents today for annual physical exam. Denies any concerns or issues today. Exercise: works out regularly 5 times per week with jogging and swimming or swim class. Diet: Watches diet for salt (salty snacks, added salt, processed frozen/canned foods), sugary/sweet snacks, unhealthy fats: Yes Caffeine: occasional Water intake: adequate Alcohol intake: No Smoker: No REVIEW OF SYSTEMS General: no fevers, no chills, no night sweats, no recurrent infections, no change in appetite, no change in energy and no significant changes in weight HEENT: no frequent or significant headaches, no changes in hearing, no visual changes Neck: no lumps, no pain and no swelling Respiratory: no cough, no wheezing, no shortness of breath Cardiovascular: no chest pain, no chest pressure, no palpitations and no swelling GI: Negative for abdominal discomfort, blood in stools or black stools, change in bowel habit, heart burn, nausea, vomiting : Negative for dysuria, frequency, incontinence, hematuria, hesitancy and nocturia >1 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: 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 for abnormal vaginal bleeding, abnormal vaginal discharge Musculoskeletal: Negative for joint pain or swelling, back pain or muscle pain Skin: Negative for lesions, rash, and itching Psych: Negative for sleep disturbance, mood disorder and recent psychosocial stressors PAST MEDICAL HISTORY Diagnosis Date - Anemia, unspecified 05/2013 - Breast cancer (HCC) 12/10/2011 Right, ER/WA+, Her 2neu 0-1+ Not amplified - Mixed hyperlipidemia Hyperlipidemia PAST SURGICAL HISTORY Procedure Laterality Date - BIOPSY BREAST 2011 - COLONOSCOP W/ OR W/O [facility] SPEC 09/30/2013 Colonoscopy - PAST SURGICAL HISTORY OF 12/04/2011 Right breast Lumpectomy, excision of lump in right axillary region ALLERGIES Patient has no known allergies. MEDICATIONS tamoxifen (NOLVADEX) 20 mg tablet Take 1 tablet by mouth once daily. fluticasone (FLONASE) 50 mcg/actuation nasal spray Use 2 Sprays in each nostril once daily as needed. Rinse mouth after use. Cholecalciferol, Vitamin D3, (VITAMIN D) 1,000 unit cap Take 2,000 Units by mouth once daily. prochlorperazine (COMPAZINE) 10 mg tablet Take 1 tablet by mouth every 6 hours as needed (nausea). FAMILY HISTORY Problem Relation Age of Onset - Hypertension Mother - Lipids Father - Osteoporosis Father - Stroke Father - Breast Cancer Other no family history breast ca - Cancer Other no family history ovarian cancer Social History Substance Use Topics - Smoking status: Never Smoker - Smokeless tobacco: Never Used - Alcohol use No PHYSICAL EXAM BP 119/80 Pulse 68 Temp 36.6 ?C (97.9 ?F) (Temporal Artery) Resp 14 Ht 165 cm (5' 4.96) Wt 60.9 kg (134 lb 3.2 oz) LMP 06/22/2014 SpO2 100% BMI 22.36 kg/m? General Appearance: well appearing, in no acute distress, alert Pysch: mood and affect broad and appropriate Skin: Skin color, texture, turgor normal for age; Eyes: PERRLA, conjunctiva pink and moist, no icterus, sclera white, non-injected Neck: Thyroid normal size and symmetric without palpable nodules, Neck supple, No adenopathy Oropharynx: lips normal without lesions, tongue midline and normal, soft palate, uvula, and tonsils normal Lymph nodes: No supraclavicular lymphadenopathy Lungs: Lungs clear to auscultation. No wheezing, rhonchi, rales Heart: RRR without murmur, gallop, or rubs. No ectopy Abdomen: Abdomen soft, non-tender. Bowel sounds normal. No masses, organomegaly Ext: no edema in LE bilaterally, good distal pulses DTAP,TDAP,TD(1 - Tdap) due on 1982 HEPATITIS C SCREENING due on 2007 INFLUENZA(1) due on 06/14/2018 MAMMOGRAM due on 09/20/2018 COLORECTAL CANCER SCREENING,SEE MODIFIER due on 09/30/2018 LIPID SCREEN due on 04/30/2019 PAP EVERY 5 YEARS due on 11/07/2020 HPV EVERY 5 YEARS due on 11/07/2020 DIABETES SCREEN due on 03/27/2021 ASSESSMENT/PLAN: 1. Encounter for preventative adult health care examination - ICD9: V70.0, ICD10: Z00.00 (primary diagnosis) Discussed health maintenance, including regular aerobic exercise, low fat diet, and periodic exams. - Colon cancer screening reviewed and colonoscopy recommended. Patient due in September for screening colonoscopy, done every 5 years due to history of breast cancer. Order placed. - Vaccination(s) recommended today of Influenza. Tdap also recommended, patient to check with her oncologist fist - Follow up for annual exam in one year. 2. Need for vaccination - ICD9: V05.9, ICD10: Z23 - INFLUENZA VACCINE QUADRIVALENT AGE 3 YRS PLUS + IM 3. 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 3524-2188 Season Patient is identified by name and date of : Yes [] CONTRAINDICATIONS color enhanced section Age less than 6 months? No Allergy to eggs, chicken, chicken feathers, or chicken dander? No Allergy to thimerosal (a preservative) or formaldehyde, gelatin? No History of severe reaction to any vaccine component or a previous dose of influenza vaccination? No History of Guillain-Townley Syndrome within 6 weeks after a previous influenza vaccine? No Patient is not moderately or severely ill? No Current temperature greater or equal to 100.4F? No History of Bone Marrow Transplant prior 6 months or solid organ transplant in the past 3 months ? No History of fainting after a prior injection or medical procedure? No- ? If patient has fainted in the past, the CDC recommends sitting or lying down for 15 minutes after the vaccination. [] VERIFICATION color enhanced section Was the answer Yes for any of the above contraindications? No contraindications present. Acceptable to proceed with vaccine. Patient/guardian agrees the above answers are true to the best of their knowledge? Yes Flu vaccine information sheet given? Yes See immunization activity in [facility] for details of immunizations adminstered today. Patient age: [age] year old For The 5030-9224 Flu Season 6-35 months old: Fluzone 0.25 ml - IM (Preservative Free) 3 years of age: Fluzone 0.5 ml - IM (Preservative Free) 3 years and older: Fluzone 0.5 ml- IM-(with Preservatives) 65+ years old: 2-49 years old Fluzone High-Dose 0.5 ml - IM (Preservative Free) FLUMIST- intranasal REMEMBER: If patient is less than 9 years of age and this is the first vaccine of Influenza to be received in any flu season, they should receive a second dose in one months time. ALVAREZOV Observed: 07/16/2018 Status: COMPLETED Source: [place] 11:00 AM [facility] REPOSITORY Office Visit (INTMWS) JOANN IRVIGN ([id number]) 1965 F Date Time Provider Department 07/16/18 11:00 AM YVES HIGH (SUPERVISORY AIDE) INTMWS During your visit today, we recorded the following information about you: Temperature Pulse Respiration Blood pressure 97.9 degrees 68/minute 14/minute 119/80 Weight Height 60.9 kg 1.65 m Jackelin Morales [facility] 07/16/2018 1:45 PM Signed 52 year old female here for INACTIVATED INFLUENZA VACCINE. Season Patient is identified by name and date of : Yes [] CONTRAINDICATIONS color enhanced section Age less than 6 months? No Allergy to eggs, chicken, chicken feathers, or chicken dander? No Allergy to thimerosal (a preservative) or formaldehyde, gelatin? No History of severe reaction to any vaccine component or a previous dose of influenza vaccination? No History of Guillain-Townley Syndrome within 6 weeks after a previous influenza vaccine? No Patient is not moderately or severely ill? No Current temperature greater or equal to 100.4F? No History of Bone Marrow Transplant prior 6 months or solid organ transplant in the past 3 months ? No History of fainting after a prior injection or medical procedure? No- ? If patient has fainted in the past, the CDC recommends sitting or lying down for 15 minutes after the vaccination. [] VERIFICATION color enhanced section Was the answer Yes for any of the above contraindications? No contraindications present. Acceptable to proceed with vaccine. Patient/guardian agrees the above answers are true to the best of their knowledge? Yes Flu vaccine information sheet given? Yes See immunization activity in [facility] for details of immunizations adminstered today. Patient age: [age] year old For The 2465-7722 Flu Season 6-35 months old: Fluzone 0.25 ml - IM (Preservative Free) 3 years of age: Fluzone 0.5 ml - IM (Preservative Free) 3 years and older: Fluzone 0.5 ml- IM-(with Preservatives) 65+ years old: 2-49 years old Fluzone High-Dose 0.5 ml - IM (Preservative Free) FLUMIST- intranasal REMEMBER: If patient is less than 9 years of age and this is the first vaccine of Influenza to be received in any flu season, they should receive a second dose in one months time. Yves High APRN.IVANA 07/16/2018 1:45 PM Signed CC: Patient presents with: Physical Imm/Inj: Flu Vaccine HPI Joann Irving is a 52 year old female who presents today for annual physical exam. Denies any concerns or issues today. Exercise: works out regularly 5 times per week with jogging and swimming or swim class. Diet: Watches diet for salt (salty snacks, added salt, processed frozen/canned foods), sugary/sweet snacks, unhealthy fats: Yes Caffeine: occasional Water intake: adequate Alcohol intake: No Smoker: No REVIEW OF SYSTEMS General: no fevers, no chills, no night sweats, no recurrent infections, no change in appetite, no change in energy and no significant changes in weight HEENT: no frequent or significant headaches, no changes in hearing, no visual changes Neck: no lumps, no pain and no swelling Respiratory: no cough, no wheezing, no shortness of breath Cardiovascular: no chest pain, no chest pressure, no palpitations and no swelling GI: Negative for abdominal discomfort, blood in stools or black stools, change in bowel habit, heart burn, nausea, vomiting : Negative for dysuria, frequency, incontinence, hematuria, hesitancy and nocturia >1 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: Negative for abnormal vaginal bleeding, abnormal vaginal discharge Musculoskeletal: Negative for joint pain or swelling, back pain or muscle pain Skin: Negative for lesions, rash, and itching Psych: Negative for sleep disturbance, mood disorder and recent psychosocial stressors PAST MEDICAL HISTORY Diagnosis Date - Anemia, unspecified 05/2013 - Breast cancer (HCC) 12/10/2011 Right, ER/WA+, Her 2neu 0-1+ Not amplified - Mixed hyperlipidemia Hyperlipidemia PAST SURGICAL HISTORY Procedure Laterality Date - BIOPSY BREAST 2011 - COLONOSCOP W/ OR W/O [facility] SPEC 09/30/2013 Colonoscopy - PAST SURGICAL HISTORY OF 12/04/2011 Right breast Lumpectomy, excision of lump in right axillary region ALLERGIES Patient has no known allergies. MEDICATIONS tamoxifen (NOLVADEX) 20 mg tablet Take 1 tablet by mouth once daily. fluticasone (FLONASE) 50 mcg/actuation nasal spray Use 2 Sprays in each nostril once daily as needed. Rinse mouth after use. Cholecalciferol, Vitamin D3, (VITAMIN D) 1,000 unit cap Take 2,000 Units by mouth once daily. prochlorperazine (COMPAZINE) 10 mg tablet Take 1 tablet by mouth every 6 hours as needed (nausea). FAMILY HISTORY Problem Relation Age of Onset - Hypertension Mother - Lipids Father - Osteoporosis Father - Stroke Father - Breast Cancer Other no family history breast ca - Cancer Other no family history ovarian cancer Social History Substance Use Topics - Smoking status: Never Smoker - Smokeless tobacco: Never Used - Alcohol use No PHYSICAL EXAM BP 119/80 Pulse 68 Temp 36.6 ?C (97.9 ?F) (Temporal Artery) Resp 14 Ht 165 cm (5' 4.96) Wt 60.9 kg (134 lb 3.2 oz) LMP 06/22/2014 SpO2 100% BMI 22.36 kg/m? General Appearance: well appearing, in no acute distress, alert Pysch: mood and affect broad and appropriate Skin: Skin color, texture, turgor normal for age; Eyes: PERRLA, conjunctiva pink and moist, no icterus, sclera white, non-injected Neck: Thyroid normal size and symmetric without palpable nodules, Neck supple, No adenopathy Oropharynx: lips normal without lesions, tongue midline and normal, soft palate, uvula, and tonsils normal Lymph nodes: No supraclavicular lymphadenopathy Lungs: Lungs clear to auscultation. No wheezing, rhonchi, rales Heart: RRR without murmur, gallop, or rubs. No ectopy Abdomen: Abdomen soft, non-tender. Bowel sounds normal. No masses, organomegaly Ext: no edema in LE bilaterally, good distal pulses DTAP,TDAP,TD(1 - Tdap) due on 1982 HEPATITIS C SCREENING due on 2007 INFLUENZA(1) due on 06/14/2018 MAMMOGRAM due on 09/20/2018 COLORECTAL CANCER SCREENING,SEE MODIFIER due on 09/30/2018 LIPID SCREEN due on 04/30/2019 PAP EVERY 5 YEARS due on 11/07/2020 HPV EVERY 5 YEARS due on 11/07/2020 DIABETES SCREEN due on 03/27/2021 ASSESSMENT/PLAN: 1. Encounter for preventative adult health care examination - ICD9: V70.0, ICD10: Z00.00 (primary diagnosis) Discussed health maintenance, including regular aerobic exercise, low fat diet, and periodic exams. - Colon cancer screening reviewed and colonoscopy recommended. Patient due in September for screening colonoscopy, done every 5 years due to history of breast cancer. Order placed. - Vaccination(s) recommended today of Influenza. Tdap also recommended, patient to check with her oncologist fist - Follow up for annual exam in one year. 2. Need for vaccination - ICD9: V05.9, ICD10: Z23 - INFLUENZA VACCINE QUADRIVALENT AGE 3 YRS PLUS + IM 3. 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 Are you or could you be ? No 2. Are you currently having any stomach/gastrointestinal issues at this time such as constipation, diarrhea, abdominal pain, rectal bleeding etc? No 3. Do you have an implanted device such as a defibrillator, pacemaker, Cardiac Stent or deep brain stimulation device? No 4. Do you have any new or past cardiac (heart) or pulmonary (lung) issues? No 5. Is the patient's BMI 40 or greater? No:Body mass index is 22.36 kg/m?.. Last Wt 07/16/18 : 60.9 kg (134 lb 3.2 oz) Last Ht 07/16/18 : 165 cm (5' 4.96) 6. Have you had difficulty with prior sedations or complications with other procedures? No 7. Have you had difficulty with anesthesia previously re: ? Difficult intubation? No ? Other difficulty or allergic reaction to anesthesia other than post op N/V? No 8. Do you currently use oxygen or a breathing machine at night? No 9. Do you take any narcotics, depression or anti-Anxiety medications or 3 or more prescription drugs on a daily basis? No 10. Do you use any illegal or recreational drugs? No 11. Have you been hospitalized in the past 6 weeks? No 12. Are you on dialysis or have Chronic Kidney Disease? No 13. Have you been diagnosed with chronic liver disease such as hepatitis or cirrhosis? No 14. Do you have a seizure disorder? No 15. Do you have difficulty swallowing? No 16. Do you have ulcerative colitis or Crohn's disease? No 17. Do you take any Blood thinners, including Aspirin or fish oil? No 18. Do you have any blood disorders (re:hemophiliac)? No 19. Are you Diabetic? No 20. Any other important health information we should be made aware of prior to your colonoscopy? No 21. Any alcohol use: No. To be completed by LIP: Patient appropriate for Open Access Colonoscopy: Yes: appropriate for Open Access Procedure Checklist: Prior to closing the encounter: ? Complete questionnaire: Yes ? Confirm Prep order has been Ordered/Pended: Yes. ? Patient's procedure could be delayed if not given the script for the prep. Please ensure the prep is escripted to pharmacy or printed. Instructions for the prep will print upon filing or pending this smartset. ? Please send all open access questionnaires to [facility] Sched Pool #[id number] Yves HighLAUREENAngelaIVANA 07/16/2018 11:24 AM Signed Health Information For Patients and the Community How to Prepare for Your Colonoscopy Using Golytely, Nulytely, Trilyte or Colyte Preparations IMPORTANT - Please Read These Instructions at Least 2 Weeks Before Your Colonoscopy [place] Instructions: ?Your bowel must be empty so that your doctor can clearly view your colon. Follow all of the instructions in this handout EXACTLY as they are written. If you do NOT follow the directions for when to start drinking the bowel preparation (see next page), your colonoscopy WILL be cancelled. ?Do NOT eat any solid food the ENTIRE day before your colonoscopy. ?Buy your bowel preparation at least 5 days before your colonoscopy. ?Do NOT mix the solution until the day before your colonoscopy. Designated Support Team Member on the Day of Your Exam A responsible family member or friend MUST come with you to your colonoscopy and REMAIN in the endoscopy area until you are discharged! You are NOT ALLOWED to drive, take a taxi or bus, or leave the Endoscopy Center ALONE. If you do not have a responsible hook up driver (family member or friend) with you to take you home, your exam cannot be done with sedation and will be cancelled. Medications Some of the medicines you take may need to be stopped or adjusted before your colonoscopy. You MUST call the doctor who ordered any of the following medicines at least 2 weeks before your colonoscopy. ?Blood thinners -- such as Coumadin? (warfarin), Plavix? (clopidogrel), Ticlid? (ticlopidine hydrochloride), Agrylin? (anagrelide), Xarelto? (Rivaroxaban), Pradaxa? (Dabigatran), Eliquis? (Apixaban), and Effient? (Prasugrel). ?Insulin or diabetes pills. Please call the doctor that monitors your glucose levels. Your insulin dosage may need to be adjusted due to the diet restrictions required with this bowel preparation. (Please bring your diabetes medicines with you on the day of your procedure.) If you take aspirin, take it and ALL other medications prescribed by your doctor. On the day of your colonoscopy, take your medications with a sip of water. Revised 11/2016 1 Five (5) Days Before Your Colonoscopy ?Do NOT take medicines that stop diarrhea -- such as Imodium?, Kaopectate?, or Pepto Bismol?. ?Do NOT take fiber supplements -- such as Metamucil?, Citrucel?, or Perdiem?. ?Do NOT take products that contain iron -- such as multi-vitamins -- (the label lists what is in the products). ?Do NOT take vitamin E. Buy the prescription bowel preparation solution at your local pharmacy or drugstore pharmacy. Three (3) Days Before Your Colonoscopy Do NOT eat high-fiber foods -- such as popcorn, beans, seeds (flax, sunflower, quinoa), multigrain bread, nuts, salad/vegetables, or fresh and dried fruit. One (1) Day Before Your Colonoscopy Only drink clear liquids the ENTIRE DAY before your colonoscopy. Do NOT eat any solid foods. Drink at least 8 ounces of clear liquids every hour after waking up. The clear liquids you can drink include: ?water, apple, or white grape juice; broth; coffee or tea (without milk or creamer); clear carbonated beverages such as georgie donald or lemon-walker river soda; Gatorade? or other sports drinks (not red); Cruz-Aid? or other flavored drinks (not red). You may eat plain jello or other gelatins (not red) or popsicles (not red). Do NOT drink alcohol on the day before or the day of the procedure. 2 Revised 11/2016 When to Mix and Drink Your Bowel Prep Follow the instructions on the label. After mixing, place the solution in the refrigerator for a couple of hours before drinking. You may add the flavor packet that came with the bowel preparation. DO NOT add ice, sugar or any flavorings to the solution. Evening Before Your Colonoscopy ?Start drinking the bowel preparation at 6 PM the evening before your colonoscopy. Drink an 8-oz glass of bowel preparation every 10 minutes. You must finish drinking the solution by 9 PM the night before your scheduled procedure. ?You may continue to drink clear liquids only until midnight. Do NOT eat or drink ANYTHING after midnight the night before your procedure or your procedure may be cancelled. This is for your safety and will reduce the risk of having any food or liquid in your stomach move into your lungs (aspiration) during a procedure. If you take aspirin, take it and ALL other prescribed medicines with a sip of water on the day of your colonoscopy. Contact Information: If you are unable to keep your appointment or have any questions about the instructions, please call the facility where the procedure is being performed. Call between the hours of 8:00 AM and 5:00 PM. If you are calling after 5:00 PM, please call Nurse button puncher at [phone]. [facility] [address] [place] [id number] Index # [id number] Revised 11/2016 3 Colonoscopy Procedure Overview Please Read Prior to the Procedure What is a Colonoscopy A colonoscopy is an outpatient procedure in which the inside of the large intestine (colon and rectum) is examined. A colonoscopy is commonly used to evaluate gastrointestinal symptoms, such as rectal and intestinal bleeding, abdominal pain, or changes in bowel habits. Colonoscopies are also performed in individuals without symptoms to check for colorectal polyps or cancer. A screening colonoscopy is recommended for anyone 50 years of age and older, and for anyone with parents, siblings or children with a history of colorectal cancer or polyps. What Happens Before a Colonoscopy To have a successful colonoscopy, your bowel must be empty so that your physician can clearly view the colon. To do this, it is very important to read and follow all of the instructions given to you at least 2 weeks BEFORE your exam. If your bowel is not empty, your colonoscopy will not be successful and may have to be repeated. If you feel nauseated or vomit while taking the bowel preparation, wait 30 minutes before drinking more fluid and start with small sips of solution. Some activity (such as walking) or a few soda crackers may help decrease the nausea you are feeling. If the nausea persists, please contact nurse supply and distribution manager at [phone]. You may experience skin irritation around the anus due to the passage of liquid stools. To prevent and treat skin irritation, you should: ?Apply Vaseline? or Desitin? ointment to the skin around the anus before drinking the bowel preparation medications. These products can be purchased at any [email or web address]. ?Wipe the skin after each bowel movement with disposable wet wipes instead of toilet paper. These are found in the toilet paper area of the store. ?Sit in a bathtub filled with warm water for 10 to 15 minutes after you finish passing a stool; after soaking, blot the skin dry with a soft cloth, apply Vaseline? or Desitin? ointment to the anal area, and place a cotton ball just outside your anus to absorb leaking fluid. What Happens During a Colonoscopy During a colonoscopy, an experienced physician uses a colonoscope (a long, flexible instrument about 1/2 inch in diameter) to view the lining of the colon. The colonoscope is inserted into the rectum and advanced through the large intestine. If necessary during a colonoscopy, small amounts of tissue can be removed for analysis (a biopsy) and polyps can be identified and entirely removed. In many cases, a colonoscopy allows accurate diagnosis and treatment of colorectal problems without the need for a major operation. Revised 11/2016 5 ?You are asked to wear a hospital gown and an IV will be started. ?You are given a pain reliever and a sedative intravenously (in your vein). You will feel relaxed and somewhat drowsy. ?You will lie on your left side, with your knees drawn up towards your chest. ?A small amount of air is used to expand the colon so the physician can see the colon owens. ?You may feel mild cramping during the procedure. Cramping can be reduced by taking slow, deep breaths. ?The colonoscope is slowly withdrawn while the lining of your bowel is carefully examined. ?The procedure lasts from 30 minutes to 1 hour. What Happens After a Colonoscopy ?You will stay in a recovery room for observation until you are ready for discharge. ?You may feel some cramping or a sensation of having gas, but this quickly passes. ?If sedation has been given, a responsible family member or friend must drive you home. ?Avoid alcohol, driving, and operating machinery for 24 hours following the procedure. ?Unless otherwise instructed, you may immediately return to your normal diet. We recommend you wait until the day after your procedure to resume normal activities. ?If polyps were removed or a biopsy was taken, the physician performing your colonoscopy will tell you when it is safe to resume taking your blood thinners. ?If a biopsy was taken or a polyp was removed, you may notice a little amount of rectal bleeding for 1 to 2 days after the procedure. If you have a large amount of rectal bleeding, high or persistent fevers, or severe abdominal pain within the next 2 weeks, please go to your local emergency room and call the physician who performed your exam. 6 Revised 11/2016 ?Copyright 1113-0142 [facility]. All rights reserved. Revised 11/2016 Colette Mullins Psr 07/16/2018 1:45 PM Signed 1st failed attempt to contact patient. Left voice message. Colette Mullins Psr Vivien Alejandreelena 2018 12:32 PM Signed 2nd failed attempt to contact patient, left voice message Vivien Alejandreelena Vivien Jossy 07/24/2018 12:35 PM Signed 3rd failed attempt to contact patient, left voice message and mailing colonoscopy letter Vivien Jossy Mullins Psr 08/08/2018 9:38 AM Signed Scheduled patient for colonoscopy with Dr. Murphy on 09/26/18. Mailing instructions. Colette Mullins Psr Referring Provider: SELF [[id number]] Allergies As of Date: 07/16/2018 (No Known Allergies) Date Reviewed: 07/16/2018 Reviewed by: Jackelin Morales Telephone Engineer - Fully Assessed Reason for Visit: Physical [83] Imm/Inj [58] Cmt: Flu Vaccine Reason For Visit History Recorded Primary Visit Diagnosis:Encounter for preventative adult health care examination [Z00.00] Other Visit Diagnoses:Need for vaccination [Z23] Special screening for malignant neoplasms, colon [Z12.11] Order(s):INFLUENZA VACCINE QUADRIVALENT AGE 3 YRS PLUS + IM [[id number]] Order #: [id number] [] peg 3350-electrolytes (COLYTE) 240-22.72-6.72 -5.84 gram solutionTake 4,000 mL by mouth one time only for 1 dose.Disp: 4000 mLRfl: 0 COLONOSCOPY SCRN NOT HIGH RISK [[id number]] Order #: [id number] FUTURE Prescriptions as of 07/16/2018 Sig: TAMOXIFEN 20 MG TABLET Take 1 tablet by mouth once d* FLUTICASONE 50 MCG/ACTUATION * Use 2 Sprays in each nostril * CHOLECALCIFEROL (VITAMIN D3) * Take 2,000 Units by mouth onc* PEG 3350 240 GRAM-ELECTROLYTE* Take 4,000 mL by mouth one ti* PROCHLORPERAZINE MALEATE 10 M* Take 1 tablet by mouth every * Problem List As Of Date 07/16/2018 Noted Resolved Hyperlipemia [E78.5] INVALID FOR* More... Breast cancer [C50.919] INVALID FOR* More... History of breast cancer [Z85.3] INVALID FOR* Calcification of left breast [R92.1] INVALID FOR* Malignant neoplasm of upper-outer quadrant of r*INVALID FOR* Other instructions from your clinician: Health Information For Patients and the Community How to Prepare for Your Colonoscopy Using Golytely, Nulytely, Trilyte or Colyte Preparations IMPORTANT - Please Read These Instructions at Least 2 Weeks Before Your Colonoscopy [place] Instructions: ?Your bowel must be empty so that your doctor can clearly view your colon. Follow all of the instructions in this handout EXACTLY as they are written. If you do NOT follow the directions for when to start drinking the bowel preparation (see next page), your colonoscopy WILL be cancelled. ?Do NOT eat any solid food the ENTIRE day before your colonoscopy. ?Buy your bowel preparation at least 5 days before your colonoscopy. ?Do NOT mix the solution until the day before your colonoscopy. Designated Support Team Member on the Day of Your Exam A responsible family member or friend MUST come with you to your colonoscopy and REMAIN in the endoscopy area until you are discharged! You are NOT ALLOWED to drive, take a taxi or bus, or leave the Endoscopy Center ALONE. If you do not have a responsible hook up driver (family member or friend) with you to take you home, your exam cannot be done with sedation and will be cancelled. Medications Some of the medicines you take may need to be stopped or adjusted before your colonoscopy. You MUST call the doctor who ordered any of the following medicines at least 2 weeks before your colonoscopy. ?Blood thinners -- such as Coumadin? (warfarin), Plavix? (clopidogrel), Ticlid? (ticlopidine hydrochloride), Agrylin? (anagrelide), Xarelto? (Rivaroxaban), Pradaxa? (Dabigatran), Eliquis? (Apixaban), and Effient? (Prasugrel). ?Insulin or diabetes pills. Please call the doctor that monitors your glucose levels. Your insulin dosage may need to be adjusted due to the diet restrictions required with this bowel preparation. (Please bring your diabetes medicines with you on the day of your procedure.) If you take aspirin, take it and ALL other medications prescribed by your doctor. On the day of your colonoscopy, take your medications with a sip of water. Revised 11/2016 1 Five (5) Days Before Your Colonoscopy ?Do NOT take medicines that stop diarrhea -- such as Imodium?, Kaopectate?, or Pepto Bismol?. ?Do NOT take fiber supplements -- such as Metamucil?, Citrucel?, or Perdiem?. ?Do NOT take products that contain iron -- such as multi- vitamins -- (the label lists what is in the products). ?Do NOT take vitamin E. Buy the prescription bowel preparation solution at your local pharmacy or drugstore pharmacy. Three (3) Days Before Your Colonoscopy Do NOT eat high-fiber foods -- such as popcorn, beans, seeds (flax, sunflower, quinoa), multigrain bread, nuts, salad/vegetables, or fresh and dried fruit. One (1) Day Before Your Colonoscopy Only drink clear liquids the ENTIRE DAY before your colonoscopy. Do NOT eat any solid foods. Drink at least 8 ounces of clear liquids every hour after waking up. The clear liquids you can drink include: ?water, apple, or white grape juice; broth; coffee or tea (without milk or creamer); clear carbonated beverages such as georgie donald or lemon-walker river soda; Gatorade? or other sports drinks (not red); Cruz-Aid? or other flavored drinks (not red). You may eat plain jello or other gelatins (not red) or popsicles (not red). Do NOT drink alcohol on the day before or the day of the procedure. 2 Revised 11/2016 When to Mix and Drink Your Bowel Prep Follow the instructions on the label. After mixing, place the solution in the refrigerator for a couple of hours before drinking. You may add the flavor packet that came with the bowel preparation. DO NOT add ice, sugar or any flavorings to the solution. Evening Before Your Colonoscopy ?Start drinking the bowel preparation at 6 PM the evening before your colonoscopy. Drink an 8-oz glass of bowel preparation every 10 minutes. You must finish drinking the solution by 9 PM the night before your scheduled procedure. ?You may continue to drink clear liquids only until midnight. Do NOT eat or drink ANYTHING after midnight the night before your procedure or your procedure may be cancelled. This is for your safety and will reduce the risk of having any food or liquid in your stomach move into your lungs (aspiration) during a procedure. If you take aspirin, take it and ALL other prescribed medicines with a sip of water on the day of your colonoscopy. Contact Information: If you are unable to keep your appointment or have any questions about the instructions, please call the facility where the procedure is being performed. Call between the hours of 8:00 AM and 5:00 PM. If you are calling after 5:00 PM, please call Nurse button puncher at [phone]. [facility] [address] [address] Index # [id number] Revised 11/2016 3 Colonoscopy Procedure Overview Please Read Prior to the Procedure What is a Colonoscopy A colonoscopy is an outpatient procedure in which the inside of the large intestine (colon and rectum) is examined. A colonoscopy is commonly used to evaluate gastrointestinal symptoms, such as rectal and intestinal bleeding, abdominal pain, or changes in bowel habits. Colonoscopies are also performed in individuals without symptoms to check for colorectal polyps or cancer. A screening colonoscopy is recommended for anyone 50 years of age and older, and for anyone with parents, siblings or children with a history of colorectal cancer or polyps. What Happens Before a Colonoscopy To have a successful colonoscopy, your bowel must be empty so that your physician can clearly view the colon. To do this, it is very important to read and follow all of the instructions given to you at least 2 weeks BEFORE your exam. If your bowel is not empty, your colonoscopy will not be successful and may have to be repeated. If you feel nauseated or vomit while taking the bowel preparation, wait 30 minutes before drinking more fluid and start with small sips of solution. Some activity (such as walking) or a few soda crackers may help decrease the nausea you are feeling. If the nausea persists, please contact nurse supply and distribution manager at [phone]. You may experience skin irritation around the anus due to the passage of liquid stools. To prevent and treat skin irritation, you should: ?Apply Vaseline? or Desitin? ointment to the skin around the anus before drinking the bowel preparation medications. These products can be purchased at any drugstore. ?Wipe the skin after each bowel movement with disposable wet wipes instead of toilet paper. These are found in the toilet paper area of the store. ?Sit in a bathtub filled with warm water for 10 to 15 minutes after you finish passing a stool; after soaking, blot the skin dry with a soft cloth, apply Vaseline? or Desitin? ointment to the anal area, and place a cotton ball just outside your anus to absorb leaking fluid. What Happens During a Colonoscopy During a colonoscopy, an experienced physician uses a colonoscope (a long, flexible instrument about 1/2 inch in diameter) to view the lining of the colon. The colonoscope is inserted into the rectum and advanced through the large intestine. If necessary during a colonoscopy, small amounts of tissue can be removed for analysis (a biopsy) and polyps can be identified and entirely removed. In many cases, a colonoscopy allows accurate diagnosis and treatment of colorectal problems without the need for a major operation. Revised 11/2016 5 ?You are asked to wear a hospital gown and an IV will be started. ?You are given a pain reliever and a sedative intravenously (in your vein). You will feel relaxed and somewhat drowsy. ?You will lie on your left side, with your knees drawn up towards your chest. ?A small amount of air is used to expand the colon so the physician can see the colon owens. ?You may feel mild cramping during the procedure. Cramping can be reduced by taking slow, deep breaths. ?The colonoscope is slowly withdrawn while the lining of your bowel is carefully examined. ?The procedure lasts from 30 minutes to 1 hour. What Happens After a Colonoscopy ?You will stay in a recovery room for observation until you are ready for discharge. ?You may feel some cramping or a sensation of having gas, but this quickly passes. ?If sedation has been given, a responsible family member or friend must drive you home. ?Avoid alcohol, driving, and operating machinery for 24 hours following the procedure. ?Unless otherwise instructed, you may immediately return to your normal diet. We recommend you wait until the day after your procedure to resume normal activities. ?If polyps were removed or a biopsy was taken, the physician performing your colonoscopy will tell you when it is safe to resume taking your blood thinners. ?If a biopsy was taken or a polyp was removed, you may notice a little amount of rectal bleeding for 1 to 2 days after the procedure. If you have a large amount of rectal bleeding, high or persistent fevers, or severe abdominal pain within the next 2 weeks, please go to your local emergency room and call the physician who performed your exam. 6 Revised 11/2016 ?Copyright 0234-6787 [facility]. All rights reserved. Revised 11/2016 Prescriptions ordered this encounter Disp Refills Start End PEG 3350 240 GRAM-ELECTROLYTES 22.72* 4000* 0 07/16/2018 07/16/2018 Route: ORAL Sig: Take 4,000 mL by mouth one time only for 1 dose. Follow-up and Disposition History Recorded Letter Text [address] [place] [address] 07/24/2018 Joann Irving [id number] Dear Joann , We have received a referral from your Primary Care Physician requesting us to contact you to schedule a Screening Colonoscopy for prevention and early detection of colon cancer. Our scheduling office has tried to contact you without success. Please contact our schedulers at [phone] when you are ready to schedule. If you have had your follow up colonoscopy elsewhere, please contact us as well, so we may update your records. As always, your health is of primary concern to our practice. We look forward to hearing from you. Sincerely, [facility] Encounter Status:Closed by YVES HIGH CNP on 07/16/18 PROGRESS Observed: 03/28/2018 Status: COMPLETED Source: [place] 12:15 PM [facility] REPOSITORY HNO ID: [id number] Author: Jennifer Carrillo Service: (none) Author Type: Physician Type: Progress Notes Filed: 03/28/2018 12:22 PM Note Text: HISTORY OF PRESENT ILLNESS: Ms. Irving 52-year-old white female who was found to have T1c N0 (i-) M0, grade 1, right breast cancer, stage IA, ER/WA positive, Her 2neu non-amplified. This was in the tail of the breast. She now returns after undergoing Oncotype DX shows score of 11. She has completed XRT and was started on Tamoxifen 03/2012. CURRENT STATUS: Since her last visit, she is off for the summer. She reports that she is going to [place]. She reports that her son is going to [employer] for his masters in [employer] and her other son is going to [employer] She has not had any further episodes of vaginal bleeding. She will have two seniors this fall. ROS: CONSTITUTIONAL: No fever, chills, night sweats or excessive fatigue. EYES: No significant visual difficulties. No diplopia. No blurred vision HEENT: No sore mouth or throat. No sinus drainage. ENDOCRINE: No hot flashes or night sweats. Denies excessive thirst. HEMATOLOGY/LYMPHOLOGY: No easy bruising or bleeding, The patient denies any tender or palpable lymph nodes. RESPIRATORY: No dyspnea on exertion, chest pain or hemoptysis. CARDIOVASCULAR: Denies palpitations orthopnea. GASTROINTESTINAL: Denies GI bleeding or change in bowel habits. Denies heartburn or abdominal pain. MUSCULOSKELETAL: No joint pain, swelling or redness. No decreased range of motion. SKIN: No chronic rashes, inflammation, ulcerations or skin changes. NEURO: No headaches. Denies extremity weakness or numbness. Normal gait. All other reviewed and negative other than HPI. ECOG PERFORMANCE STATUS: 0- Fully active, able to carry on all pre-disease performance w/o restriction. Social History Marital status: Spouse name: Price Years of education: 18 Number of children: 2 Occupational History Occupation Employer [employer] Social History Main Topics Smoking status: Never Smoker Smokeless tobacco: Never Used Alcohol use: No Drug use: No Sexual activity: Yes Partners with: Male control/protection: Vasectomy Other Topics Concern Special Diet No Exercise Yes Comment:Walk and run x3 per week. Social History Narrative Lives with spouse, significant other, family, or friends. 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, [employer] --- Updated July 15, 2017 [facility] FAMILY HISTORY Problem Relation Age of Onset - Hypertension Mother - Lipids Father - Osteoporosis Father - Stroke Father - Breast Cancer Other no family history breast ca - Cancer Other no family history ovarian cancer PAST MEDICAL HISTORY Diagnosis Date - Anemia, unspecified 05/2013 - Breast cancer (HCC) 12/10/2011 Right, ER/WA+, Her 2neu 0-1+ Not amplified - Mixed hyperlipidemia Hyperlipidemia PHYSICAL EXAM: BP 121/71 Pulse 70 Temp (Src) 98 (Oral) Resp 16 Wt 132 lb 12.8 oz (60.2kg) LMP 06/22/2014 CONSTITUTIONAL: Awake, alert, oriented. HEAD (Incl. face): Normocephalic; Atraumatic. EYES: Pupils are reactive. No scleral icterus. HEENT: No oral exudates. NECK: No thyromegaly. No JVD. HEMATOLOGY/LYMPHATIC: No petechiae or purpura. No tender or palpable lymph nodes in the cervical, supraclavicular, axillary or inguinal areas. RESPIRATORY: Lungs are clear to auscultation. CARDIOVASCULAR: Regular rate and rhythm. 2 + radial pulse. ABDOMEN: Non-tender, soft, positive bowel sounds. BACK/SPINE: No kyphosis or scoliosis. Non tender to palpation. MUSCULOSKELETAL: No tenderness or swelling, normal range of motion without obvious weakness. EXTREMITIES: No cyanosis, clubbing INTEGUMENTARY: No rashes or masses. NEURO: No sensory or motor deficits, normal cerebellar function, normal gait, cranial nerves intact. PSYCHIATRIC: Pleasant affect. No signs of agitation. BREAST: Bilateral breast without masses, nipple d/c or skin discoloration. LABS: Results for JOANN IRVING ( ) as of 03/28/2018 12:15 Ref. Range 03/27/2018 11:23 Sodium Latest Ref Range: 136 - 144 mmol/L 141 Potassium Latest Ref Range: 3.7 - 5.1 mmol/L 4.2 Chloride Latest Ref Range: 97 - 105 mmol/L 101 CO2 Latest Ref Range: 22 - 30 mmol/L 27 BUN Latest Ref Range: 7 - 21 mg/dL 15 Creatinine Latest Ref Range: 0.58 - 0.96 mg/dL 0.66 Glucose Latest Ref Range: 74 - 99 mg/dL 99 Protein, Total Latest Ref Range: 6.3 - 8.0 g/dL 7.8 Calcium Latest Ref Range: 8.5 - 10.2 mg/dL 9.4 Albumin Latest Ref Range: 3.9 - 4.9 g/dL 4.8 Bilirubin, Total Latest Ref Range: 0.2 - 1.3 mg/dL <0.2 (L) Alkaline Phosphatase Latest Ref Range: 32 - 117 U/L 62 ALT Latest Ref Range: 7 - 38 U/L 24 AST Latest Ref Range: 13 - 35 U/L 32 Anion Gap Latest Ref Range: 9 - 18 mmol/L 13 eGFR- Unknown >60 eGFR-All Other Races Latest Units: . >60 Hematocrit Latest Ref Range: 36.0 - 46.0 % 39.9 WBC Latest Ref Range: 3.70 - 11.00 k/uL 8.21 RBC Latest Ref Range: 3.90 - 5.20 m/uL 4.59 Hemoglobin Latest Ref Range: 11.5 - 15.5 g/dL 13.0 Platelet Count Latest Ref Range: 150 - 400 k/uL 308 MCV Latest Ref Range: 80.0 - 100.0 fL 86.9 MCH Latest Ref Range: 26.0 - 34.0 pG 28.3 MCHC Latest Ref Range: 30.5 - 36.0 g/dL 32.6 MPV Latest Ref Range: 9.0 - 12.7 fL 10.0 RDW-CV Latest Ref Range: 11.5 - 15.0 % 12.8 Neut% Latest Units: % 69.1 Abs Neut (ANC) Latest Ref Range: 1.45 - 7.50 k/uL 5.67 Lymph% Latest Units: % 23.6 Abs Lymph Latest Ref Range: 1.00 - 4.00 k/uL 1.94 Routt% Latest Units: % 5.6 Abs Routt Latest Ref Range: <0.87 k/uL 0.46 Eosin% Latest Units: % 1.5 Abs Eosin Latest Ref Range: <0.46 k/uL 0.12 Baso% Latest Units: % 0.2 Abs Baso Latest Ref Range: <0.11 k/uL <0.03 RADIOLOGY: BILATERAL DIGITAL SCREENING MAMMOGRAM WITH CAD-DATE OF EXAM: Sep 11:02AM IMPRESSION: BENIGN FINDING There is no mammographic evidence of malignancy. A 1 year screening mammogram is recommended. Leesa Durham M.D. da/penrad:09/20/2017 14:49:33 Pediatric Urologist: Evon DONIS)(M), [facility] letter sent: Normal over 40 Mammogram BI-RADS: 2 Benign finding ASSESSMENT / PLAN: 1. Right Breast carcinoma. The pt was found to have low risk disease, T1c N0 M0 (i-), ER/WA positive and Her 2neu negative. She wants to continue on the Tamoxifen to complete the 10 years. We have discussed in the past and today options of 5 more years tamoxifen or switching to an AI. She will continue on the tamoxifen. I will refill this today. Her most recent mammogram was 09/2017 and was BIRADS 1. I will plan to repeat in 09/2018. She will be due for a repeat bmd 02/2019. 2. Abn of Liver. Repeat CT in 03/2012 shows no abnormality. 3. Left Breast Biopsy. This was negative. 4. S/p endometrial biopsy. 5. General. She reports that she has maternal cousin that was dx with breast cancer. Her BRCA 1/2 testing and was negative. Jennifer Carrillo MD CNOVSP Observed: 03/28/2018 Status: COMPLETED Source: [place] 11:45 AM [facility] REPOSITORY Visit (SP) Office ([place]) JOANN IRVING ([id number]) 1965 F Date Time Provider Department 03/28/18 11:45 AM JENNIFER CARRILLO During your visit today, we recorded the following information about you: Temperature Pulse Respiration Blood pressure 98 degrees 70/minute 16/minute 121/71 Weight 60.2 kg Jennifer Carrillo MD 03/28/2018 12:22 PM Signed HISTORY OF PRESENT ILLNESS: Ms. Irving 52-year-old white female who was found to have T1c N0 (i-) M0, grade 1, right breast cancer, stage IA, ER/WA positive, Her 2neu non-amplified. This was in the tail of the breast. She now returns after undergoing Oncotype DX shows score of 11. She has completed XRT and was started on Tamoxifen 03/2012. CURRENT STATUS: Since her last visit, she is off for the summer. She reports that she is going to [place]. She reports that her son is going to [employer] for his masters in [employer] and her other son is going to [employer] She has not had any further episodes of vaginal bleeding. She will have two seniors this fall. ROS: CONSTITUTIONAL: No fever, chills, night sweats or excessive fatigue. EYES: No significant visual difficulties. No diplopia. No blurred vision HEENT: No sore mouth or throat. No sinus drainage. ENDOCRINE: No hot flashes or night sweats. Denies excessive thirst. HEMATOLOGY/LYMPHOLOGY: No easy bruising or bleeding, The patient denies any tender or palpable lymph nodes. RESPIRATORY: No dyspnea on exertion, chest pain or hemoptysis. CARDIOVASCULAR: Denies palpitations orthopnea. GASTROINTESTINAL: Denies GI bleeding or change in bowel habits. Denies heartburn or abdominal pain. MUSCULOSKELETAL: No joint pain, swelling or redness. No decreased range of motion. SKIN: No chronic rashes, inflammation, ulcerations or skin changes. NEURO: No headaches. Denies extremity weakness or numbness. Normal gait. All other reviewed and negative other than HPI. ECOG PERFORMANCE STATUS: 0- Fully active, able to carry on all pre-disease performance w/o restriction. Social History Marital status: Spouse name: Price Years of education: 18 Number of children: 2 Occupational History Occupation Employer Comment [employer] Social History Main Topics Smoking status: Never Smoker Smokeless tobacco: Never Used Alcohol use: No Drug use: No Sexual activity: Yes Partners with: Male control/protection: Vasectomy Other Topics Concern Special Diet No Exercise Yes Comment:Walk and run x3 per week. Social History Narrative Lives with spouse, significant other, family, or friends. 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, [employer] --- Updated July 15, 2017 [facility] FAMILY HISTORY Problem Relation Age of Onset - Hypertension Mother - Lipids Father - Osteoporosis Father - Stroke Father - Breast Cancer Other no family history breast ca - Cancer Other no family history ovarian cancer PAST MEDICAL HISTORY Diagnosis Date - Anemia, unspecified 05/2013 - Breast cancer (HCC) 12/10/2011 Right, ER/WA+, Her 2neu 0-1+ Not amplified - Mixed hyperlipidemia Hyperlipidemia PHYSICAL EXAM: BP 121/71 Pulse 70 Temp (Src) 98 (Oral) Resp 16 Wt 132 lb 12.8 oz (60.2kg) LMP 06/22/2014 CONSTITUTIONAL: Awake, alert, oriented. HEAD (Incl. face): Normocephalic; Atraumatic. EYES: Pupils are reactive. No scleral icterus. HEENT: No oral exudates. NECK: No thyromegaly. No JVD. HEMATOLOGY/LYMPHATIC: No petechiae or purpura. No tender or palpable lymph nodes in the cervical, supraclavicular, axillary or inguinal areas. RESPIRATORY: Lungs are clear to auscultation. CARDIOVASCULAR: Regular rate and rhythm. 2 + radial pulse. ABDOMEN: Non-tender, soft, positive bowel sounds. BACK/SPINE: No kyphosis or scoliosis. Non tender to palpation. MUSCULOSKELETAL: No tenderness or swelling, normal range of motion without obvious weakness. EXTREMITIES: No cyanosis, clubbing INTEGUMENTARY: No rashes or masses. NEURO: No sensory or motor deficits, normal cerebellar function, normal gait, cranial nerves intact. PSYCHIATRIC: Pleasant affect. No signs of agitation. BREAST: Bilateral breast without masses, nipple d/c or skin discoloration. LABS: Results for JOANN IRVING ( ) as of 03/28/2018 12:15 Ref. Range 03/27/2018 11:23 Sodium Latest Ref Range: 136 - 144 mmol/L 141 Potassium Latest Ref Range: 3.7 - 5.1 mmol/L 4.2 Chloride Latest Ref Range: 97 - 105 mmol/L 101 CO2 Latest Ref Range: 22 - 30 mmol/L 27 BUN Latest Ref Range: 7 - 21 mg/dL 15 Creatinine Latest Ref Range: 0.58 - 0.96 mg/dL 0.66 Glucose Latest Ref Range: 74 - 99 mg/dL 99 Protein, Total Latest Ref Range: 6.3 - 8.0 g/dL 7.8 Calcium Latest Ref Range: 8.5 - 10.2 mg/dL 9.4 Albumin Latest Ref Range: 3.9 - 4.9 g/dL 4.8 Bilirubin, Total Latest Ref Range: 0.2 - 1.3 mg/dL <0.2 (L) Alkaline Phosphatase Latest Ref Range: 32 - 117 U/L 62 ALT Latest Ref Range: 7 - 38 U/L 24 AST Latest Ref Range: 13 - 35 U/L 32 Anion Gap Latest Ref Range: 9 - 18 mmol/L 13 eGFR- Unknown >60 eGFR-All Other Races Latest Units: . >60 Hematocrit Latest Ref Range: 36.0 - 46.0 % 39.9 WBC Latest Ref Range: 3.70 - 11.00 k/uL 8.21 RBC Latest Ref Range: 3.90 - 5.20 m/uL 4.59 Hemoglobin Latest Ref Range: 11.5 - 15.5 g/dL 13.0 Platelet Count Latest Ref Range: 150 - 400 k/uL 308 MCV Latest Ref Range: 80.0 - 100.0 fL 86.9 MCH Latest Ref Range: 26.0 - 34.0 pG 28.3 MCHC Latest Ref Range: 30.5 - 36.0 g/dL 32.6 MPV Latest Ref Range: 9.0 - 12.7 fL 10.0 RDW-CV Latest Ref Range: 11.5 - 15.0 % 12.8 Neut% Latest Units: % 69.1 Abs Neut (ANC) Latest Ref Range: 1.45 - 7.50 k/uL 5.67 Lymph% Latest Units: % 23.6 Abs Lymph Latest Ref Range: 1.00 - 4.00 k/uL 1.94 Routt% Latest Units: % 5.6 Abs Routt Latest Ref Range: <0.87 k/uL 0.46 Eosin% Latest Units: % 1.5 Abs Eosin Latest Ref Range: <0.46 k/uL 0.12 Baso% Latest Units: % 0.2 Abs Baso Latest Ref Range: <0.11 k/uL <0.03 RADIOLOGY: BILATERAL DIGITAL SCREENING MAMMOGRAM WITH CAD-DATE OF EXAM: Sep 11:02AM IMPRESSION: BENIGN FINDING There is no mammographic evidence of malignancy. A 1 year screening mammogram is recommended. Leesa avendano/isa:09/20/2017 14:49:33 Pediatric Urologist: Evon Leonard RT(R)(M), [facility] letter sent: Normal over 40 Mammogram BI-RADS: 2 Benign finding ASSESSMENT / PLAN: 1. Right Breast carcinoma. The pt was found to have low risk disease, T1c N0 M0 (i-), ER/WA positive and Her 2neu negative. She wants to continue on the Tamoxifen to complete the 10 years. We have discussed in the past and today options of 5 more years tamoxifen or switching to an AI. She will continue on the tamoxifen. I will refill this today. Her most recent mammogram was 09/2017 and was BIRADS 1. I will plan to repeat in 09/2018. She will be due for a repeat bmd 02/2019. 2. Abn of Liver. Repeat CT in 03/2012 shows no abnormality. 3. Left Breast Biopsy. This was negative. 4. S/p endometrial biopsy. 5. General. She reports that she has maternal cousin that was dx with breast cancer. Her BRCA 1/2 testing and was negative. Jennifer Carrillo MD Referring Provider: RIGO BOONE [[id number]] Allergies As of Date: 03/28/2018 (No Known Allergies) Date Reviewed: 03/28/2018 Reviewed by: Lorraine Guevara MA - Fully Assessed Reason for Visit: F/U 6 Month [444] Primary Visit Diagnosis:Malignant neoplasm of upper-outer quadrant of right breast in female, estrogen receptor positive (HCC) [C50.411, Z17.0] Order(s):CBC + DIFF (FOR REMOTE [facility] USE) [SQRCBCDF] Order #: [id number] FUTURE COMP METABOLIC PANEL [SQCMP] Order #: [id number] FUTURE PATTIE SCREENING [9139151] Order #: [id number] FUTURE tamoxifen (NOLVADEX) 20 mg tabletTake 1 tablet by mouth once daily.Disp: 90 tabletRfl: 1 Disposition: Return in about 6 months (around 09/27/2018) for labs prior, scans prior to return visit, RX. Follow-up and Disposition History Recorded Prescriptions as of 03/28/2018 Sig: TAMOXIFEN 20 MG TABLET Take 1 tablet by mouth once d* FLUTICASONE 50 MCG/ACTUATION * Use 2 Sprays in each nostril * CHOLECALCIFEROL (VITAMIN D3) * Take 2,000 Units by mouth onc* PROCHLORPERAZINE MALEATE 10 M* Take 1 tablet by mouth every * Patient not taking: Reported on 03/28/2018 Problem List As Of Date 03/28/2018 Noted Resolved Shoulder Pain [M25.519] INVALID FOR* Hyperlipemia [E78.5] INVALID FOR* More... Breast cancer [C50.919] INVALID FOR* More... History of breast cancer [Z85.3] INVALID FOR* Calcification of left breast [R92.1] INVALID FOR* Malignant neoplasm of upper-outer quadrant of r*INVALID FOR* Encounter Status:Closed by JENNIFER CARRILLO MD on 03/28/18 REMOTE CBCDIF Collected: 03/27/2018 Status: F Source: [place] (FOR [facility] USE ONLY) 11:23 AM [facility] REPOSITORY TYPE CODE TESTS RESULT OUT OF REFERENCE UNITS RANGE LAB WBC 3.70-11.00 k/uL WBC 8.21 LAB RBC 3.90-5.20 m/uL RBC 4.59 LAB HGB 11.5-15.5 g/dL Hemoglobin 13.0 LAB HCT 36.0-46.0 % Hematocrit 39.9 LAB MCV 80.0-100.0 fL MCV 86.9 LAB MCH 26.0-34.0 pG MCH 28.3 LAB MCHC 30.5-36.0 g/dL MCHC 32.6 LAB RDWCV 11.5-15.0 % RDW-CV 12.8 LAB PLTCT 150-400 k/uL Platelet Count 308 LAB MPV 9.0-12.7 fL MPV 10.0 LAB ANEUT % Neut% 69.1 LAB AANEUT 1.45-7.50 k/uL Abs Neut 5.67 LAB ALYMP % Lymph% 23.6 LAB AALYMP 1.00-4.00 k/uL Abs Lymph 1.94 LAB AMONO % Routt% 5.6 LAB AAMONO <0.87 k/uL Abs Routt 0.46 LAB AEOS % Eosin% 1.5 LAB AAEOS <0.46 k/uL Abs Eosin 0.12 LAB ABASO % Baso% 0.2 LAB AABASO <0.11 k/uL Abs Baso <0.03 COMP METABOLIC PANEL Collected: 03/27/2018 Status: F Source: [place] 11:23 AM [facility] REPOSITORY TYPE CODE TESTS RESULT OUT OF REFERENCE UNITS RANGE LAB TP 6.3-8.0 g/dL Protein, Total 7.8 LAB ALB 3.9-4.9 g/dL Albumin 4.8 LAB CA 8.5-10.2 mg/dL Calcium, Total 9.4 LAB TBIL 0.2-1.3 mg/dL Low Bilirubin, Total <0.2 LAB ALKP 32-117 U/L Alkaline Phosphatase 62 LAB AST 13-35 U/L AST 32 LAB GLU 74-99 mg/dL Glucose 99 Result Comment: The [place] Diabetes Association (ADA) provides guidance for cutoff values for fasting glucose and random glucose. The ADA defines fasting as no caloric intake for at least 8 hours. Fas ting plasma glucose results between 100 to 125 mg/dL indicate increased risk for diabetes (prediabetes). Fasting plasma glucose results greater than or equal to 126 mg/dL meet the criteria for diagnosis of diabetes. In the absence of unequivocal hyperglycemia, results should be confirmed by repeat testing. In a patient with classic symptoms of hyperglycemia or hyperglycemic crisis, random plasma glucose results greater than or equal to 200 mg/dL meet the criteria for diagnosis of diabetes. Reference: Standards of Medical Care in Diabetes 2016, [employer] Diabetes Association. Diabetes Care. 2016.39(Suppl 1). LAB BUN 7-21 mg/dL BUN 15 LAB CRET 0.58-0.96 mg/dL Creatinine 0.66 LAB NA 136-144 mmol/L Sodium 141 LAB K 3.7-5.1 mmol/L Potassium 4.2 LAB CL 97-105 mmol/L Chloride 101 LAB CO2 22-30 mmol/L CO2 27 LAB AGAP 9-18 mmol/L Anion Gap 13 LAB ALT 7-38 U/L ALT 24 LAB GFRAA eGFR- Amer. >60 LAB GFRNAA . eGFR-All Other Races >60 Result Comment: eGFR (Estimated GFR) Units of measure: mL/min/1.73 meters squared eGFR is derived from the reexpressed MDRD Study equation using the following parameters: serum creatinine, age, gender and race. The creatinine assay has been calibrated to be traceable to IDMS. An eGFR <60 mL/min/1.73m2 for >3 months is consistent with chronic kidney disease. Refer to KDOQI guidelines for clinical interpretation. In patients with unstable renal function, e.g. those with acute kidney injury, the eGFR may not accurately reflect actual GFR. Performed By: #### CMP #### [facility] [address] [place], [place] [address] PROGRESS Observed: 01/08/2018 Status: COMPLETED Source: [place] 1:12 PM [facility] REPOSITORY HNO ID: [id number] Author: Ileana Brandon Service: (none) Author Type: Nurse Practitioner Type: Progress Notes Filed: 01/08/2018 1:16 PM Note Text: Telemedicine Visit - Distance Health Virtual Visit Note Patient seen on [employer] platform. Location of patient: [place] History of Present Illness Joann Irving is a 52 year old year old female who presents for the past 3 day(s) with symptoms that are: Constant pt presents with three day h/o fevers, chills, sweats, body aches and fatigue; fevers have improved, but nausea is constant; she is still eating and drinking; BM's are nl; urination nl PAST MEDICAL HISTORY Diagnosis Date - Anemia, unspecified 05/2013 - Breast cancer (HCC) 12/10/2011 Right, ER/WA+, Her 2neu 0-1+ Not amplified - Mixed hyperlipidemia Hyperlipidemia PAST SURGICAL HISTORY Procedure Laterality Date - BIOPSY BREAST 2011 - COLONOSCOP W/ OR W/O BRSH SPEC 09/30/2013 Colonoscopy - PAST SURGICAL HISTORY OF 12/04/2011 Right breast Lumpectomy, excision of lump in right axillary region FAMILY HISTORY Problem Relation Age of Onset - Hypertension Mother - Lipids Father - Osteoporosis Father - Stroke Father - Breast Cancer Other no family history breast ca - Cancer Other no family history ovarian cancer Social History Marital status: Spouse name: Price Years of education: 18 Number of children: 2 Occupational History Occupation Employer Comment [employer] Social History Main Topics Smoking status: Never Smoker Smokeless status: Never Used Alcohol use: No Drug use: No Sexual activity: Yes Partners with: Male control/protection: Vasectomy Other Topics Concern Special Diet No Exercise Yes Comment:Walk and run x3 per week. Social History Narrative Lives with spouse, significant other, family, or friends. 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 tamoxifen (NOLVADEX) 20 mg tablet Take 1 tablet by mouth once daily. fluticasone (FLONASE) 50 mcg/actuation nasal spray Use 2 Sprays in each nostril once daily as needed. Rinse mouth after use. Cholecalciferol, Vitamin D3, (VITAMIN D) 1,000 unit cap Take 1,000 Units by mouth once daily. No current facility-administered medications for this visit. ALLERGIES No Known Allergies Video Exam (Examination performed via Video enabled technology) General appearance: Alert, oriented, pleasant, in NAD :Yes Ill appearing :Yes Lethargic appearing :No Eyes: Sclera clear :Yes Conjunctiva without erythema :Yes Oropharynx: normal, no erythema Frontal sinus tenderness by self palpation;No Maxillary sinus tenderness by self palpation :No Tender cervical adenopathy by self palpation :No Respiratory distress :No Coughing noted :No Abd: non-tender by self-palaption ASSESSMENT/PLAN: 1. Nausea - ICD9: 787.02, ICD10: R11.0 - PROCHLORPERAZINE MALEATE 10 MG TABLET - fever care discussed - Red flags discussed for need for in person care - will present to [facility] if symptoms persists - All questions answered Ileana Brandon, LOAD OUT WORKER.SUPERVISORY AIDE We strongly encourage you to share the following record of today's visit with your primary care provider. This will help in providing you the best care. ALLERGIES ALLERGIES DATE TYPE / CODE NAME / CODE REACTION SEVERITY SOURCE 09/24/2018 Drug No Known Unknown [facility] Allergy/416 Allergies/W52370 Hospital 736295(SNOM 0388(RXNORM) Repository ED CT) Drug NO KNOWN [facility] Class/47649 ALLERGIES Main [place] 1003(SNOMED Repository CT) ENCOUNTERS ENCOUNTERS ADMIT/DISCHARGE ACCOUNT ADMITTING ENCOUNTER LOCATION SOURCE NUMBER CLASS 10/28/2018/10/29/19 [id number] Ambulatory [address] Repository 09/26/2018/09/26/[id number] Repository 09/24/2018/09/24/20 [id number] Ambulatory [address] Repository 09/24/2018 [id number] Ambulatory [facility] ing:LABSPEC Repository 09/24/2018/09/24/20 [id number] Ambulatory B[address]:[place] [address] [facility] Repository 09/24/2018/09/24/20 [id number] Ambulatory [address] Repository 07/16/2018/07/17/20 [id number] Ambulatory [address] Repository 03/28/2018/03/31/20 [id number] Ambulatory [address] Repository 03/27/2018/03/27/20 [id number] Ambulatory [address] Repository 01/08/2018/01/10/[id number] Repository PAYERS PAYERS ENCOUNTER GUARANTOR PAYER SUBSCRIBER SOURCE 09/24/2018 JOANN [id number] Primary PRICE SWAINDOB: [place] Insurance:[facility]ICAL [id number] [id number]: (419) Number: Repository [phone] () [id number] Date:[id number] [place] [id number]: 09/24/2018 Secondary NOT GIVENUNK [place] Insurance:SELF PAY [facility] Number: Effective Repository Date:2018-09-24 09/24/2018 JOANN [id number] Primary Price SwainDOB: [place] Insurance:MEDICAL [id number] [id number]: (419) Number: Repository [phone] () [id number] Date:[id number] [address] [place] [id number]: 09/24/2018 Secondary NOT GIVENUNK [place] Insurance:SELF PAY [facility] Number: Effective Repository Date:2018-09-24
== END ==
PROVIDERS: Referring Provider Nurse Practitioner Women's Health; Visit Provider Nurse Practitioner Women's Health
DX: Z12.4 Encounter for screening for malignant neoplasm of cervix (principal)
CPT/HCPCS: 87624; 88175; G0145